=== PATIENT | male | born 1955 | race American Indian/Alaskan Native ===

== ENCOUNTER 2016-12-09 22:08 | Emergency (ER) | payer MEDICAID ==
[2016-12-09 22:46] LABS: Basophils % (Auto) 0.9 % (0.0-1.8); Eosinophils % (Auto) 9.5 % (0.0-4.3); Hematocrit 45.6 % (35.5-45.6); Hemoglobin 14.9 gm/dl (11.8-15.2); Mean Corpuscular HGB Conc 33 % (32-34); Mean Corpuscular Hemoglobin 28 pg (28-32); Mean Corpuscular Volume 85 fl (84-94); Platelet Count 231 K/mm3 (140-440); Red Blood Count 5.36 M/mm3 (3.65-5.03); Red Cell Distribution Width 13.2 % (13.2-15.2); White Blood Count 4.1 K/mm3 (4.5-11.0)
[2016-12-09 23:05] LABS: Anion Gap 18 mmol/L; BUN/Creatinine Ratio 21; Blood Urea Nitrogen 15 mg/dL (9-20); Carbon Dioxide 24 mmol/L (22-30); Chloride 98.3 mmol/L (98-107); Glucose 123 mg/dL (75-100); Potassium 4.8 mmol/L (3.6-5.0); Sodium 135 mmol/L (137-145)
--- NOTE | 2016-12-10 02:20 | Emergency Department Report ---
ED Chest Pain HPI - General Chief Complaint: Chest Pain Stated Complaint: CP,BRYANT Time Seen by Provider: 12/09/16 22:21 Source: patient, EMS Mode of arrival: Stretcher Limitations: No Limitations - History of Present Illness -: Sudden, minutes(s) (30) Onset: during rest Pain Location: substernal, left chest, right chest Pain Radiation: none Severity: moderate Severity scale (0 -10): 5 Quality: tightness, sharp Consistency: intermittent Improves With: nothing Worsens With: inspiration, palpation Context: recent illness re: denies: nausea, vomting, diaphoresis Other Symptoms: cough Treatments Prior to Arrival: nitroglycerin Aspirin use within the Past 7 Days: (0) No - Related Data On Oral Contraceptives: No Home Medications Medication Instructions Recorded Confirmed Last Taken Amlodipine Besylate [Norvasc] 10 mg PO DAILY 12/09/16 12/09/16 Unknown Hydrochlorothiazide [HCTZ] 12.5 mg PO DAILY 12/09/16 12/09/16 Unknown Insulin Glargine [Lantus] 20 units SQ QHS 12/09/16 12/09/16 12/08/16 Lisinopril [Zestril TAB] 30 mg PO QDAY 12/09/16 12/09/16 Unknown Metoclopramide HCl [Reglan TAB] 5 mg PO TIDAC 12/09/16 12/09/16 Unknown Pravastatin (Nf) [Pravachol] 20 mg PO QHS 12/09/16 12/09/16 Unknown Previous Rx's Medication Instructions Recorded Last Taken Type Naproxen 500 mg PO BID #20 tablet 12/10/16 Unknown Rx Allergies Allergy/AdvReac Type Severity Reaction Status Date / Time No Known Allergies Allergy Unverified 11/23/15 01:24 Heart Score - HEART Score History: Slightly suspicious EKG: Normal Age: 45-65 Risk factors: > 3 risk factors or hx of atherosclerotic disease Troponin: < normal limit HEART Score: 3 ED Review of Systems ROS: Stated complaint: CP,BRYANT Other details as noted in HPI Constitutional: denies: chills, fever Eyes: denies: eye pain, eye discharge, vision change ENT: denies: ear pain, throat pain Respiratory: denies: cough, shortness of breath, wheezing Cardiovascular: chest pain. denies: palpitations Endocrine: no symptoms reported Gastrointestinal: denies: abdominal pain, nausea, diarrhea Genitourinary: denies: urgency, dysuria Musculoskeletal: denies: back pain, joint swelling, arthralgia Skin: denies: rash, lesions Neurological: denies: headache, weakness, paresthesias Psychiatric: denies: anxiety, depression Hematological/Lymphatic: denies: easy bleeding, easy bruising ED Past Medical Hx - Past Medical History Previous Medical History?: Yes Hx Hypertension: Yes Hx CVA: No Hx Heart Attack/AMI: Yes (1 stent) Hx Congestive Heart Failure: No Hx Diabetes: Yes Hx Deep Vein Thrombosis: No Hx Pulmonary Embolism: No Additional medical history: high cholestrol - Surgical History Past Surgical History?: Yes Hx Coronary Stent: Yes - Social History Smoking Status: Former Smoker Substance Use Type: None - Medications Home Medications: Home Medications Medication Instructions Recorded Confirmed Last Taken Type Amlodipine Besylate [Norvasc] 10 mg PO DAILY 12/09/16 12/09/16 Unknown History Hydrochlorothiazide [HCTZ] 12.5 mg PO DAILY 12/09/16 12/09/16 Unknown History Insulin Glargine [Lantus] 20 units SQ QHS 12/09/16 12/09/16 12/08/16 History Lisinopril [Zestril TAB] 30 mg PO QDAY 12/09/16 12/09/16 Unknown History Metoclopramide HCl [Reglan TAB] 5 mg PO TIDAC 12/09/16 12/09/16 Unknown History Pravastatin (Nf) [Pravachol] 20 mg PO QHS 12/09/16 12/09/16 Unknown History Naproxen 500 mg PO BID #20 tablet 12/10/16 Unknown Rx ED Physical Exam - General Limitations: No Limitations General appearance: alert, in no apparent distress - Head Head exam: Present: atraumatic, normocephalic - Eye Eye exam: Present: normal appearance - ENT ENT exam: Present: mucous membranes moist - Neck Neck exam: Present: normal inspection - Respiratory Respiratory exam: Present: normal lung sounds bilaterally. Absent: respiratory distress - Cardiovascular Cardiovascular Exam: Present: regular rate, normal rhythm, other (Reproducible chest pain on compression of rib and sternum bilaterally.). Absent: systolic murmur, diastolic murmur, rubs, gallop - GI/Abdominal GI/Abdominal exam: Present: soft, normal bowel sounds - Rectal Rectal exam: Present: deferred - Extremities Exam Extremities exam: Present: normal inspection - Back Exam Back exam: Present: normal inspection - Neurological Exam Neurological exam: Present: alert, oriented X3 - Psychiatric Psychiatric exam: Present: normal affect, normal mood - Skin Skin exam: Present: warm, dry, intact, normal color. Absent: rash ED Course Vital Signs 12/09/16 22:34 Pulse Rate 75 Respiratory 18 Rate O2 Sat by Pulse 98 Oximetry - Reevaluation(s) Reevaluation #1: 12/10/16 02:22 Patient with no chest pain current and did report reoccuring chest pain over the last several days related to movement of arms and deep breathing. - Consultations Consultation #1: 12/10/16 02:22 Send EKG to intermediate project manager around 2220 and he stated there was no ST segment elevation. Dr. Merino. RONN score - Ronn Score Age > 65: (0) No Aspirin use within the Past 7 Days: (0) No 3 or more CAD Risk Factors: (1) Yes 2 or more Angina events in past 24 hrs: (0) No Known CAD with more than 50% Stenosis: (1) Yes Elevated Cardiac Markers: (0) No ST Deviation Greater than 0.5mm: (0) No RONN Score: 2 ED Medical Decision Making - Lab Data Result diagrams: 12/09/16 22:20 12/09/16 22:20 - EKG Data -: EKG Interpreted by [facility] EKG shows normal: sinus rhythm, QRS complexes (Incomplete LBBB), ST-T waves (No ST segment abnormalities per interventional cardiology.) Rate: normal - EKG Data Interpretation: LV[facility] - Radiology Data Radiology results: report reviewed, image reviewed No acute changes. - Medical Decision Making Patient has costochondritis and will be sent home with naproxen. He will follow up with cardiology and he reports good follow up. He would prefer an outpatient workup for chest pain and with his RONN score and heart score this is a reasonable approach. Again this appears to be all costochondritis. Critical care attestation.: If time is entered above; I have spent that time in minutes in the direct care of this critically ill patient, excluding procedure time. ED Disposition Clinical Impression: Costochondral pain Chest pain Qualifiers: Chest pain type: other chest pain Qualified Code(s): R07.89 - Other chest pain ; R07.8 - Other chest pain Disposition: TO HOME OR SELFCARE Is pt being admited?: No Does the pt Need Aspirin: No Condition: Stable Instructions: Costochondritis (ED), Chest Pain (ED) Prescriptions: Naproxen 500 mg PO BID #20 tablet Referrals: PRIMARY CARE, [Primary Care Provider] - 3-5 Days Time of Disposition: 02:29
[2016-12-10 02:50] VITALS: BP 138/93
--- NOTE | 2016-12-10 09:07 | XRay Report ---
AP CHEST: HISTORY: chest pain AP view of the chest demonstrates a normal mediastinal and cardiac contour with clear lungs and normal bony and soft tissue structures. IMPRESSION: Unremarkable AP chest.
== END 2016-12-10 02:50 | disposition home or self-care (01) ==
LOC: ED 22:08
DX: M94.0 Chondrocostal junction syndrome [Tietze] (principal); R07.89 Other chest pain; I10 Essential (primary) hypertension; E11.9 Type 2 diabetes mellitus without complications; E86.0 Dehydration; Z87.891 Personal history of nicotine dependence; Z98.890 Other specified postprocedural states
CPT/HCPCS: 36415; 71010; 80048; 84484; 85025; 93005; 93010; 99284

== ENCOUNTER 2018-03-09 04:00 | Emergency (ER) | payer MEDICAID ==
--- NOTE | 2018-03-09 04:48 | Emergency Department Report ---
- General Chief complaint: Weakness Stated complaint: LEFT SIDE NUMBNESS Time Seen by Provider: 03/09/18 04:38 Source: patient, EMS Mode of arrival: Stretcher Limitations: Physical Limitation - History of Present Illness Initial comments: Patient is a 62-year-old Citizen Of [place] male who is status post a stroke in November 2017 which left him with some mild residual weakness on the left arm and leg who is presenting with some worsening weakness in the aforementioned limbs. Patient states that at baseline he does still have some weakness however tonight approximately 2 hours prior to arrival the patient after drinking 2 glasses of red wine began having numbness and some increased weakness. Patient states he is numb in his arm leg on the left as well as buttock. Patient states it was not until he drank the wine that he started having these symptoms. The patient states that he was told that he could drink wine after he had his stroke. The patient denies any chest pain shortness of breath nausea vomiting headache. Patient does state that he feels as though he is having some slurred speech. Severity scale (0 -10): 5 - Related Data Home Medications Medication Instructions Recorded Confirmed Last Taken Insulin Glargine [Lantus] 20 units SQ QHS 12/09/16 03/09/18 12/08/16 Lisinopril [Zestril TAB] 1 tab PO QDAY 12/09/16 03/09/18 Unknown Aspirin 81 mg PO DAILY 02/07/18 03/09/18 Unknown AtorvaSTATin [Lipitor] 40 mg PO QHS 02/07/18 03/09/18 Unknown Carvedilol [Coreg] 3.125 mg PO BID 02/07/18 03/09/18 Unknown Allergies Allergy/AdvReac Type Severity Reaction Status Date / Time No Known Allergies Allergy Verified 02/07/18 05:46 ED Review of Systems ROS: Stated complaint: LEFT SIDE NUMBNESS Other details as noted in HPI Comment: All other systems reviewed and negative ED Past Medical Hx - Past Medical History Previous Medical History?: Yes Hx Hypertension: Yes Hx CVA: Yes Hx Heart Attack/AMI: Yes (2 stent) Hx Congestive Heart Failure: No Hx Diabetes: Yes (type 2) Hx Deep Vein Thrombosis: No Hx Pulmonary Embolism: No Additional medical history: high cholestrol - Surgical History Past Surgical History?: Yes Hx Coronary Stent: Yes (2 stents) Additional Surgical History: 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 - Social History Smoking Status: Never Smoker Substance Use Type: Alcohol - Medications Home Medications: Home Medications Medication Instructions Recorded Confirmed Last Taken Type Insulin Glargine [Lantus] 20 units SQ QHS 12/09/16 03/09/18 12/08/16 History Lisinopril [Zestril TAB] 1 tab PO QDAY 12/09/16 03/09/18 Unknown History Aspirin 81 mg PO DAILY 02/07/18 03/09/18 Unknown History AtorvaSTATin [Lipitor] 40 mg PO QHS 02/07/18 03/09/18 Unknown History Carvedilol [Coreg] 3.125 mg PO BID 02/07/18 03/09/18 Unknown History ED Physical Exam - General Limitations: Physical Limitation General appearance: alert, in no apparent distress - Head Head exam: Present: atraumatic, normocephalic - Eye Eye exam: Present: normal appearance - ENT ENT exam: Present: mucous membranes moist - Neck Neck exam: Present: normal inspection - Respiratory Respiratory exam: Present: normal lung sounds bilaterally. Absent: respiratory distress, wheezes, rales, rhonchi - Cardiovascular Cardiovascular Exam: Present: regular rate, normal rhythm. Absent: systolic murmur, diastolic murmur, rubs, gallop - GI/Abdominal GI/Abdominal exam: Present: soft, normal bowel sounds. Absent: distended, tenderness, guarding, rebound - Rectal Rectal exam: Present: deferred - Extremities Exam Extremities exam: Present: normal inspection - Back Exam Back exam: Present: normal inspection - Neurological Exam Neurological exam: Present: alert, oriented X3, CN II-XII intact, motor sensory deficit - Psychiatric Psychiatric exam: Present: normal affect, normal mood - Skin Skin exam: Present: warm, dry, intact, normal color. Absent: rash - Assessment Assessment Interval: Baseline - Level of Consciousness 1a. Level of Consciousness: alert/keenly responsive - LOC Questions 1b. LOC Questions: answers both correctly - LOC Command 1c. LOC Commands: performs tasks correctly - Best Gaze 2. Best Gaze: normal - Visual 3. Visual: no visual loss - Facial Palsy 4. Facial Palsy: normal symmetrical movement - Motor Arm 5b. Motor Arm Right: no drift 5a. Motor Arm Left: drift - Motor Leg 6b. Motor Leg Right: no drift 6a. Motor Leg Left: drift - Limb Ataxia 7. Limb Ataxia: absent - Sensory 8. Sensory: mild/moderate sensory loss - Best Language 9. Best Language: no aphasia - Dysarthria 10. Dysarthria: mild/moderate dysarthria - Extinction and Inattention 11. Extinction/Inattention: no abnormality - Scoring Total Score: 4 Stroke Severity: Minor Stroke ED Course Vital Signs 03/09/18 03/09/18 03/09/18 04:31 05:00 05:04 Temperature 98.1 F Pulse Rate 91 H Respiratory 15 15 Rate Blood Pressure 127/74 127/74 Blood Pressure 127/74 [Right] O2 Sat by Pulse 97 98 97 Oximetry 03/09/18 03/09/18 03/09/18 06:01 07:00 07:05 Temperature 97.5 F L Pulse Rate 83 80 80 Respiratory 15 15 15 Rate Blood Pressure 133/72 114/72 Blood Pressure 114/72 [Right] O2 Sat by Pulse 97 96 96 Oximetry 03/09/18 03/09/18 03/09/18 09:00 11:00 13:00 Temperature Pulse Rate 84 94 H 85 Respiratory 17 13 15 Rate Blood Pressure Blood Pressure 131/81 142/80 159/99 [Right] O2 Sat by Pulse 96 97 94 Oximetry 03/09/18 14:33 Temperature 97.5 F L Pulse Rate 89 Respiratory 16 Rate Blood Pressure Blood Pressure 167/98 [Right] O2 Sat by Pulse 97 Oximetry ED Medical Decision Making - Lab Data Result diagrams: 03/09/18 04:52 03/09/18 04:52 Labs 03/09/18 03/09/18 03/09/18 04:51 04:52 04:52 WBC 4.3 L RBC 4.38 Hgb 12.3 Hct 36.7 MCV 84 MCH 28 MCHC 34 RDW 13.1 L Plt Count 271 Lymph % (Auto) 41.0 H [place] % (Auto) 4.1 Eos % (Auto) 6.5 H Baso % (Auto) 1.0 Lymph # 1.8 [place] # 0.2 Eos # 0.3 Baso # 0.0 Seg Neutrophils % 47.4 Seg Neutrophils # 2.1 PT 13.1 INR 0.95 APTT 29.1 Thrombin Time 17.4 Sodium Potassium Chloride Carbon Dioxide Anion Gap BUN Creatinine Estimated GFR BUN/Creatinine Ratio Glucose POC Glucose 131 H Calcium Total Creatine Kinase CK-MB (CK-2) CK-MB (CK-2) Rel Index Troponin T 03/09/18 04:52 WBC RBC Hgb Hct MCV MCH MCHC RDW Plt Count Lymph % (Auto) [place] % (Auto) Eos % (Auto) Baso % (Auto) Lymph # [place] # Eos # Baso # Seg Neutrophils % Seg Neutrophils # PT INR APTT Thrombin Time Sodium 142 Potassium 3.8 Chloride 102.8 Carbon Dioxide 25 Anion Gap 18 BUN 12 Creatinine 0.7 L Estimated GFR > 60 BUN/Creatinine Ratio 17 Glucose 137 H POC Glucose Calcium 9.4 Total Creatine Kinase 564 H CK-MB (CK-2) 11.8 H CK-MB (CK-2) Rel Index 2.0 Troponin T 0.012 - Medical Decision Making Patient likely is intoxicated. Patient's drift was minimal. Patient was signed out to Dr. Fischer. Patient was allowed to reach sobriety and symptoms completely resolved. Patient's hypertensive episode was treated. Patient was discharged in stable condition. Critical care attestation.: If time is entered above; I have spent that time in minutes in the direct care of this critically ill patient, excluding procedure time. ED Disposition Clinical Impression: Alcohol intoxication, Weakness, Hypertensive urgency Disposition: DC-01 TO HOME OR SELFCARE Is pt being admited?: No Does the pt Need Aspirin: No Condition: Stable Instructions: Alcohol Intoxication (ED) Referrals: [facility] [Provider Group] - 3-5 Days PRIMARY CARE, [Primary Care Provider] - 3-5 Days
[2018-03-09 05:07] LABS: Eosinophils # (Auto) 0.3 K/mm3 (0.0-0.4); Eosinophils % (Auto) 6.5 % (0.0-4.3); Hematocrit 36.7 % (35.5-45.6); Hemoglobin 12.3 gm/dl (11.8-15.2); Lymphocytes # (Auto) 1.8 K/mm3 (1.2-5.4); Mean Corpuscular HGB Conc 34 % (32-34); Mean Corpuscular Volume 84 fl (84-94); Monocytes # (Auto) 0.2 K/mm3 (0.0-0.8); Monocytes % (Auto) 4.1 % (0.0-7.3); Platelet Count 271 K/mm3 (140-440); Red Blood Count 4.38 M/mm3 (3.65-5.03); Red Cell Distribution Width 13.1 % (13.2-15.2)
--- NOTE | 2018-03-09 05:10 | Cat Scan Report ---
FINAL REPORT EXAM: CT HEAD/BRAIN WO CON HISTORY: Stroke symptoms TECHNIQUE: CT imaging acquired through the head without intravenous contrast. Transaxial reformatio ns are provided. PRIORS: 02/07/2018 FINDINGS: The ventricles, cisterns and sulci are within normal limits. No intraparenchymal or extra-axial mass, hemorrhage, or mass effect. Duron and white-matter differentiation is within normal limits for patie nt age. Normal spherical shape of the globes. No significant abnormality involving the imaged portions of the paranasal sinuses and mastoid air cells. Incidentally noted small left frontal scalp lipoma measurin g up to about 12 millimeters in greatest transverse dimension on axial series 2, image 22. No skull o r facial fracture visualized. IMPRESSION: No acute intracranial abnormality. SUKHWINDER Uribe received report of findings at 0406 hours central time on 03/09/2018.
[2018-03-09 05:19] LABS: INR 0.95 (0.87-1.13)
[2018-03-09 05:20] LABS: Partial Thromboplastin Time 29.1 Sec. (24.2-36.6); Thrombin Time 17.4 Sec. (15.1-19.6)
[2018-03-09 05:27] LABS: Creatine Kinase MB 11.8 ng/mL (0.0-4.0)
[2018-03-09 05:30] LABS: BUN/Creatinine Ratio 17; Blood Urea Nitrogen 12 mg/dL (9-20); Calcium 9.4 mg/dL (8.4-10.2); Hemolysis Index 11
--- NOTE | 2018-03-09 13:54 | Emergency Department Report ---
Blank Doc - Documentation Documentation: I received patient this morning in signout from Dr. Alvarez, the overnight phys ician. Patient presented reporting left-sided weakness, however has history of baseline left-sided weakness due to previous CVA. Physical exam did not reveal any new deficits. Patient was also found to be intoxicated with alcohol level of 240. Patient has been observed in ED 10 hours. Patient currently awake and alert 3. The patient was given something to eat. Patient ambulated around the ER using his cane, no difficulty noted. Patient has steady gait, speech is not slurred. Will discharge at this time. Return precautions given.
[2018-03-09 14:36] VITALS: BP 167/98
== END 2018-03-09 14:33 | disposition home or self-care (01) ==
LOC: ED 04:00
DX: R53.1 Weakness (principal); R20.0 Anesthesia of skin; R47.81 Slurred speech; I10 Essential (primary) hypertension; I25.2 Old myocardial infarction; E11.9 Type 2 diabetes mellitus without complications; E78.00 Pure hypercholesterolemia, unspecified; Z89.421 Acquired absence of other right toe(s); Z79.4 Long term (current) use of insulin; Z86.73 Personal history of transient ischemic attack (TIA), and cerebral infarction without residual deficits; Z79.82 Long term (current) use of aspirin
CPT/HCPCS: 36415; 70450; 80048; 82550; 82553; 82962; 84484; 85025; 85610; 85670; 85730; 93005; 93010; 99285; G0480; 80320

== ENCOUNTER 2019-02-10 03:58 | Inpatient (IN) | payer MEDICAID ==
[2019-02-10 04:49] LABS: Hematocrit 42.5 % (35.5-45.6); Hemoglobin 14.1 gm/dl (11.8-15.2); Mean Corpuscular HGB Conc 33 % (32-34); Mean Corpuscular Volume 82 fl (84-94); Platelet Count 365 K/mm3 (140-440); Red Blood Count 5.18 M/mm3 (3.65-5.03); Red Cell Distribution Width 12.7 % (13.2-15.2)
[2019-02-10 05:11] LABS: Alanine Aminotransferase 20 units/L (7-56); Albumin 3.8 g/dL (3.9-5); BUN/Creatinine Ratio 29; Blood Urea Nitrogen 23 mg/dL (9-20); Calcium 10.3 mg/dL (8.4-10.2); Hemolysis Index 12
[2019-02-10 05:15] LABS: Eosinophils % (Auto) 0.4 % (0.0-4.3); Monocytes # (Auto) 0.7 K/mm3 (0.0-0.8)
[2019-02-10 05:36] LABS: Basophils % (Auto) 0.2 % (0.0-1.8); Lymphocytes % (Auto) 9.2 % (13.4-35.0)
[2019-02-10 05:37] LABS: Lymphocytes # (Auto) 0.5 K/mm3 (1.2-5.4)
[2019-02-10] MEDS ORDERED: SODIUM CHLORIDE 0.9% 1000 ML 1,000 ML IV ONE (06:47)
[2019-02-10] MEDS ORDERED: FAMOTIDINE 20 MG/2 ML INJ IV ONE (06:49)
--- NOTE | 2019-02-10 06:50 | Emergency Department Report ---
ED General Adult HPI - General Chief complaint: Abdominal Pain Stated complaint: ABD PAIN Time Seen by Provider: 02/10/19 06:07 Source: patient, EMS ( EMS documentation not available at time of chart dictation ), RN notes reviewed, old records reviewed Mode of arrival: Stretcher Limitations: Altered Mental Status, Physical Limitation - History of Present Illness Initial comments: This patient is a poor historian. The patient is a 63-year-old gentleman. This patient is not known to this provider previously. As per review of old medical records, his past medical history includes cardiac stent, diabetes, hypertension, alcohol dependency, dyslipidemia, ischemic stroke The patient is not accompanied by any friends or family members. He is report edly brought to the hospital by emergency medical services for abdominal pain. The patient is a rather poor historian. He points to the left lower quadrant and indicates she's been having abdominal pain for 2 weeks. He does not complain of nausea, vomiting or diarrhea. He cannot describe the nature of the pain. He indicates the pain increases with palpation and decreases with rest. He states that he lives "across the street", but cannot provide me his address, he believes that it is 2018, and he indicates that Khoi Nelson is the current president of [facility]. He does not complain of headache, neck pain, chest pain, urinary symptoms, or testicular pain. He is not accompanied by any friends or family at this time, additional collateral information is not available. -: week(s) Location: abdomen Quality: other Consistency: other Improves with: other Worsens with: other Associated Symptoms: other - Related Data Home Medications Medication Instructions Recorded Confirmed Last Taken Insulin Glargine [Lantus] 20 units SQ QHS 12/09/16 03/09/18 12/08/16 Lisinopril [Zestril TAB] 1 tab PO QDAY 12/09/16 03/09/18 Unknown Aspirin 81 mg PO DAILY 02/07/18 03/09/18 Unknown AtorvaSTATin [Lipitor] 40 mg PO QHS 02/07/18 03/09/18 Unknown Carvedilol [Coreg] 3.125 mg PO BID 02/07/18 03/09/18 Unknown Allergies Allergy/AdvReac Type Severity Reaction Status Date / Time No Known Allergies Allergy Verified 02/07/18 05:46 ED Review of Systems ROS: Stated complaint: ABD PAIN Other details as noted in HPI Comment: Unobtainable due to pts medical conditions Gastrointestinal: abdominal pain ED Past Medical Hx - Past Medical History Hx Hypertension: Yes Hx CVA: Yes Hx Heart Attack/AMI: Yes (2 stent) Hx Congestive Heart Failure: No Hx Diabetes: Yes (type 2) Hx Deep Vein Thrombosis: No Hx Pulmonary Embolism: No Additional medical history: high cholestrol - Surgical History Hx Coronary Stent: Yes (2 stents) Additional Surgical History: 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 - Social History Smoking Status: Never Smoker Substance Use Type: None - Medications Home Medications: Home Medications Medication Instructions Recorded Confirmed Last Taken Type Insulin Glargine [Lantus] 20 units SQ QHS 12/09/16 03/09/18 12/08/16 History Lisinopril [Zestril TAB] 1 tab PO QDAY 12/09/16 03/09/18 Unknown History Aspirin 81 mg PO DAILY 02/07/18 03/09/18 Unknown History AtorvaSTATin [Lipitor] 40 mg PO QHS 02/07/18 03/09/18 Unknown History Carvedilol [Coreg] 3.125 mg PO BID 02/07/18 03/09/18 Unknown History ED Physical Exam - General Limitations: Altered Mental Status, Physical Limitation, Other (patient confused. Patient is a poor historian.) General appearance: in no apparent distress - Head Head exam: Present: atraumatic, normocephalic - Eye Eye exam: Present: normal appearance, EOMI. Absent: nystagmus - ENT ENT exam: Present: mucous membranes dry, normal external ear exam - Neck Neck exam: Present: normal inspection, full ROM. Absent: tenderness, meningismu s - Respiratory Respiratory exam: Present: normal lung sounds bilaterally. Absent: respiratory distress - Cardiovascular Cardiovascular Exam: Present: regular rate, normal rhythm, normal heart sounds. Absent: bradycardia, tachycardia, irregular rhythm, systolic murmur, diastolic murmur, rubs, gallop - GI/Abdominal GI/Abdominal exam: Present: soft, tenderness, other (there is tenderness in the left lower quadrant. There is no rebound, guarding or peritoneal sign.). Absent: distended, guarding, rebound, rigid, pulsatile mass - Rectal Rectal exam: Present: deferred - exam: Present: normal inspection, other (there is normal testicular lie. There is normal cremasteric reflex. There is no testicular tenderness. There is no testicular swelling). Absent: testicular tenderness External exam: Present: normal external exam - Extremities Exam Extremities exam: Present: normal inspection, full ROM, other (2+ pulses noted in the bilateral upper and lower extremities. There is no palpable cord. negative Homans sign. Muscular compartments are soft. The pelvis is stable.). Absent: tenderness, pedal edema, joint swelling, calf tenderness - Back Exam Back exam: Present: normal inspection. Absent: tenderness, CVA tenderness (R), CVA tenderness (L), paraspinal tenderness, vertebral tenderness - Neurological Exam Neurological exam: Present: altered, other (the patient is alert to name and location. Does not know the year or the president. Moving 4 extremities spontaneously. 5/5 strength bilateral upper and lower extremities. Sensation is intact to light touch in the upper and lower extremities.) - Psychiatric Psychiatric exam: Present: flat affect - Skin Skin exam: Present: warm, dry, intact, normal color. Absent: rash ED Course Vital Signs 02/10/19 02/10/19 02/10/19 04:09 04:10 04:16 Temperature 98.3 F Pulse Rate 91 H 91 H Respiratory 20 12 Rate Blood Pressure 183/106 183/106 O2 Sat by Pulse 99 98 97 Oximetry 02/10/19 02/10/19 02/10/19 04:30 04:46 05:00 Temperature Pulse Rate 89 92 H 96 H Respiratory 15 17 14 Rate Blood Pressure 157/93 157/93 181/105 O2 Sat by Pulse 98 100 98 Oximetry 02/10/19 02/10/19 02/10/19 05:16 05:30 05:46 Temperature Pulse Rate 97 H 97 H 97 H Respiratory 19 12 14 Rate Blood Pressure 157/93 170/105 170/105 O2 Sat by Pulse 71 L Oximetry 02/10/19 02/10/19 02/10/19 06:00 06:16 06:30 Temperature Pulse Rate 95 H 97 H 105 H Respiratory 16 18 24 Rate Blood Pressure 157/90 157/90 164/104 O2 Sat by Pulse Oximetry 02/10/19 02/10/19 02/10/19 06:46 07:00 07:16 Temperature Pulse Rate 101 H 99 H 101 H Respiratory 20 17 19 Rate Blood Pressure 164/104 173/98 173/98 O2 Sat by Pulse 100 Oximetry 02/10/19 02/10/19 02/10/19 07:30 07:46 08:00 Temperature Pulse Rate 113 H 102 H 95 H Respiratory 18 20 19 Rate Blood Pressure 173/98 166/94 166/94 O2 Sat by Pulse Oximetry 02/10/19 08:16 Temperature Pulse Rate 103 H Respiratory 12 Rate Blood Pressure 184/107 O2 Sat by Pulse Oximetry - Reevaluation(s) Reevaluation #1: 02/10/19 08:09 Differential diagnosis, including but not limited to: Pneumonia, intra-abdominal infection, urinary tract infection, dementia, alcohol related encephalopathy, metabolic encephalopathy, multifocal/multifactorial encephalopathy Assessment and plan: 63-year-old gentleman without fever, no neck pain, no neck stiffness, multiple medical comorbidities, with mild confusion and poorly characterized left lower quadrant pain. Laboratory studies reviewed and appreciated. Urinalysis reviewed and appreciated. IV fluids, banana bag, ceftriaxone ordered. CT scan of the brain ordered. CT scan of the abdomen pelvis ordered. Patient not able to provide consent for CT scan abdomen pelvis, and given tenderness and confusion, requires emergent acquisition of diagnostics to exclude time sensitive conditions that may be emergent. Therefore, we have provided emergent and administrative consent for CT scan with IV contrast to assess for potentially emergent conditions, including abscess, colitis, perforated viscus, thrombus. We will await remainder of his laboratory studies, and CT scan results. Disposition to be determined by these results. X We will also involved case management to help ascertain what his home status is, and what his home baseline is. Reevaluation #2: 02/10/19 11:54 CT scan of the brain is negative for acute disease. CT scan abdomen pelvis s uggests small bowel obstruction. No active vomiting at this time. Remainder of laboratory studies reviewed and appreciated. Nasogastric tube is ordered. Discussed with general surgery, Dr. Fisher, who agrees to follow in consultation. Contacted Hospital physician, Dr. Ponce, who will admit patient to the medical service. Patient's fianc at the bedside, Ms. Emily Adame; [phone] The patient follows at [facility]. He's been having confusion and poor memory since October 19. She indicates that his mental status today is at his recent baseline. Updated the patient and his fiance on his condition. ED Medical Decision Making - Lab Data Result diagrams: 02/10/19 04:22 02/10/19 04:22 Vital Signs 02/10/19 04:10 Temperature 98.3 F Pulse Rate 91 H Respiratory 20 Rate Blood Pressure 183/106 O2 Sat by Pulse 98 Oximetry Lab Results 02/10/19 02/10/19 02/10/19 Range/Units 04:22 04:22 04:49 WBC 5.2 (4.5-11.0) K/mm3 RBC 5.18 H (3.65-5.03) M/mm3 Hgb 14.1 (11.8-15.2) gm/dl Hct 42.5 (35.5-45.6) % MCV 82 L (84-94) fl MCH 27 L (28-32) pg MCHC 33 (32-34) % RDW 12.7 L (13.2-15.2) % Plt Count 365 (140-440) K/mm3 Lymph % (Auto) 9.2 L (13.4-35.0) % [place] % (Auto) 14.0 H (0.0-7.3) % Eos % (Auto) 0.4 (0.0-4.3) % Baso % (Auto) 0.2 (0.0-1.8) % Lymph # 0.5 L (1.2-5.4) K/mm3 [place] # 0.7 (0.0-0.8) K/mm3 Eos # 0.0 (0.0-0.4) K/mm3 Baso # 0.0 (0.0-0.1) K/mm3 Seg Neutrophils % 76.2 H (40.0-70.0) % Seg Neutrophils # 3.9 (1.8-7.7) K/mm3 Sodium 130 L (137-145) mmol/L Potassium 4.7 (3.6-5.0) mmol/L Chloride 94.6 L (98-107) mmol/L Carbon Dioxide 24 (22-30) mmol/L Anion Gap 16 mmol/L BUN 23 H (9-20) mg/dL Creatinine 0.8 (0.8-1.5) mg/dL Estimated GFR > 60 ml/min BUN/Creatinine Ratio 29 % Glucose 283 H (75-100) mg/dL Calcium 10.3 H (8.4-10.2) mg/dL Magnesium (1.7-2.3) mg/dL Total Bilirubin 0.60 (0.1-1.2) mg/dL AST 16 (5-40) units/L ALT 20 (7-56) units/L Alkaline Phosphatase 79 (35-129) units/L Ammonia (25-60) umol/L Total Creatine Kinase (55-170) units/L Total Protein 7.3 (6.3-8.2) g/dL Albumin 3.8 L (3.9-5) g/dL Albumin/Globulin Ratio 1.1 % Lipase 18 (13-60) units/L TSH (0.270-4.200) mlU/mL Urine Color (Yellow) Urine Turbidity (Clear) Urine pH (5.0-7.0) Ur Specific [place] (1.003-1.030) Urine Protein (Negative) mg/dL Urine Glucose (UA) (Negative) mg/dL Urine Ketones (Negative) mg/dL Urine Blood (Negative) Urine Nitrite (Negative) Urine Bilirubin (Negative) Urine Urobilinogen (<2.0) mg/dL Ur Leukocyte Esterase (Negative) Urine WBC (Auto) (0.0-6.0) /HPF Urine RBC (Auto) (0.0-6.0) /HPF U Epithel Cells (Auto) (0-13.0) /HPF Urine Bacteria (Auto) (Negative) /HPF Urine Mucus /HPF Salicylates (2.8-20.0) mg/dL Urine Opiates Screen Urine Methadone Screen Acetaminophen (10.0-30.0) ug/mL Ur Barbiturates Screen Ur Phencyclidine Scrn Ur Amphetamines Screen U Benzodiazepines Scrn Urine Cocaine Screen U Marijuana (THC) Screen Drugs of Abuse Note Plasma/Serum Alcohol (0-0.07) % 02/10/19 02/10/19 02/10/19 Range/Units 06:56 06:56 06:59 WBC (4.5-11.0) K/mm3 RBC (3.65-5.03) M/mm3 Hgb (11.8-15.2) gm/dl Hct (35.5-45.6) % MCV (84-94) fl MCH (28-32) pg MCHC (32-34) % RDW (13.2-15.2) % Plt Count (140-440) K/mm3 Lymph % (Auto) (13.4-35.0) % [place] % (Auto) (0.0-7.3) % Eos % (Auto) (0.0-4.3) % Baso % (Auto) (0.0-1.8) % Lymph # (1.2-5.4) K/mm3 [place] # (0.0-0.8) K/mm3 Eos # (0.0-0.4) K/mm3 Baso # (0.0-0.1) K/mm3 Seg Neutrophils % (40.0-70.0) % Seg Neutrophils # (1.8-7.7) K/mm3 Sodium (137-145) mmol/L Potassium (3.6-5.0) mmol/L Chloride (98-107) mmol/L Carbon Dioxide (22-30) mmol/L Anion Gap mmol/L BUN (9-20) mg/dL Creatinine (0.8-1.5) mg/dL Estimated GFR ml/min BUN/Creatinine Ratio % Glucose (75-100) mg/dL Calcium (8.4-10.2) mg/dL Magnesium 1.60 L (1.7-2.3) mg/dL Total Bilirubin (0.1-1.2) mg/dL AST (5-40) units/L ALT (7-56) units/L Alkaline Phosphatase (35-129) units/L Ammonia (25-60) umol/L Total Creatine Kinase 102 (55-170) units/L Total Protein (6.3-8.2) g/dL Albumin (3.9-5) g/dL Albumin/Globulin Ratio % Lipase (13-60) units/L TSH (0.270-4.200) mlU/mL Urine Color Yellow (Yellow) Urine Turbidity Slightly-cloudy (Clear) Urine pH 5.0 (5.0-7.0) Ur Specific [place] 1.032 H (1.003-1.030) Urine Protein 30 mg/dl (Negative) mg/dL Urine Glucose (UA) >=500 (Negative) mg/dL Urine Ketones Tr (Negative) mg/dL Urine Blood Neg (Negative) Urine Nitrite Neg (Negative) Urine Bilirubin Neg (Negative) Urine Urobilinogen < 2.0 (<2.0) mg/dL Ur Leukocyte Esterase Tr (Negative) Urine WBC (Auto) 10.0 H (0.0-6.0) /HPF Urine RBC (Auto) 3.0 (0.0-6.0) /HPF U Epithel Cells (Auto) 4.0 (0-13.0) /HPF Urine Bacteria (Auto) 1+ (Negative) /HPF Urine Mucus Few /HPF Salicylates (2.8-20.0) mg/dL Urine Opiates Screen Presumptive negative Urine Methadone Screen Presumptive negative Acetaminophen (10.0-30.0) ug/mL Ur Barbiturates Screen Presumptive negative Ur Phencyclidine Scrn Presumptive negative Ur Amphetamines Screen Presumptive negative U Benzodiazepines Scrn Presumptive negative Urine Cocaine Screen Presumptive negative U Marijuana (THC) Screen Presumptive positive Drugs of Abuse Note Disclamer Plasma/Serum Alcohol (0-0.07) % 02/10/19 02/10/19 02/10/19 Range/Units 06:59 06:59 06:59 WBC (4.5-11.0) K/mm3 RBC (3.65-5.03) M/mm3 Hgb (11.8-15.2) gm/dl Hct (35.5-45.6) % MCV (84-94) fl MCH (28-32) pg MCHC (32-34) % RDW (13.2-15.2) % Plt Count (140-440) K/mm3 Lymph % (Auto) (13.4-35.0) % [place] % (Auto) (0.0-7.3) % Eos % (Auto) (0.0-4.3) % Baso % (Auto) (0.0-1.8) % Lymph # (1.2-5.4) K/mm3 [place] # (0.0-0.8) K/mm3 Eos # (0.0-0.4) K/mm3 Baso # (0.0-0.1) K/mm3 Seg Neutrophils % (40.0-70.0) % Seg Neutrophils # (1.8-7.7) K/mm3 Sodium (137-145) mmol/L Potassium (3.6-5.0) mmol/L Chloride (98-107) mmol/L Carbon Dioxide (22-30) mmol/L Anion Gap mmol/L BUN (9-20) mg/dL Creatinine (0.8-1.5) mg/dL Estimated GFR ml/min BUN/Creatinine Ratio % Glucose (75-100) mg/dL Calcium (8.4-10.2) mg/dL Magnesium (1.7-2.3) mg/dL Total Bilirubin (0.1-1.2) mg/dL AST (5-40) units/L ALT (7-56) units/L Alkaline Phosphatase (35-129) units/L Ammonia (25-60) umol/L Total Creatine Kinase (55-170) units/L Total Protein (6.3-8.2) g/dL Albumin (3.9-5) g/dL Albumin/Globulin Ratio % Lipase (13-60) units/L TSH (0.270-4.200) mlU/mL Urine Color (Yellow) Urine Turbidity (Clear) Urine pH (5.0-7.0) Ur Specific [place] (1.003-1.030) Urine Protein (Negative) mg/dL Urine Glucose (UA) (Negative) mg/dL Urine Ketones (Negative) mg/dL Urine Blood (Negative) Urine Nitrite (Negative) Urine Bilirubin (Negative) Urine Urobilinogen (<2.0) mg/dL Ur Leukocyte Esterase (Negative) Urine WBC (Auto) (0.0-6.0) /HPF Urine RBC (Auto) (0.0-6.0) /HPF U Epithel Cells (Auto) (0-13.0) /HPF Urine Bacteria (Auto) (Negative) /HPF Urine Mucus /HPF Salicylates < 0.3 L (2.8-20.0) mg/dL Urine Opiates Screen Urine Methadone Screen Acetaminophen < 5.0 L (10.0-30.0) ug/mL Ur Barbiturates Screen Ur Phencyclidine Scrn Ur Amphetamines Screen U Benzodiazepines Scrn Urine Cocaine Screen U Marijuana (THC) Screen Drugs of Abuse Note Plasma/Serum Alcohol < 0.01 (0-0.07) % 02/10/19 02/10/19 Range/Units 06:59 06:59 WBC (4.5-11.0) K/mm3 RBC (3.65-5.03) M/mm3 Hgb (11.8-15.2) gm/dl Hct (35.5-45.6) % MCV (84-94) fl MCH (28-32) pg MCHC (32-34) % RDW (13.2-15.2) % Plt Count (140-440) K/mm3 Lymph % (Auto) (13.4-35.0) % [place] % (Auto) (0.0-7.3) % Eos % (Auto) (0.0-4.3) % Baso % (Auto) (0.0-1.8) % Lymph # (1.2-5.4) K/mm3 [place] # (0.0-0.8) K/mm3 Eos # (0.0-0.4) K/mm3 Baso # (0.0-0.1) K/mm3 Seg Neutrophils % (40.0-70.0) % Seg Neutrophils # (1.8-7.7) K/mm3 Sodium (137-145) mmol/L Potassium (3.6-5.0) mmol/L Chloride (98-107) mmol/L Carbon Dioxide (22-30) mmol/L Anion Gap mmol/L BUN (9-20) mg/dL Creatinine (0.8-1.5) mg/dL Estimated GFR ml/min BUN/Creatinine Ratio % Glucose (75-100) mg/dL Calcium (8.4-10.2) mg/dL Magnesium (1.7-2.3) mg/dL Total Bilirubin (0.1-1.2) mg/dL AST (5-40) units/L ALT (7-56) units/L Alkaline Phosphatase (35-129) units/L Ammonia 36.0 (25-60) umol/L Total Creatine Kinase (55-170) units/L Total Protein (6.3-8.2) g/dL Albumin (3.9-5) g/dL Albumin/Globulin Ratio % Lipase (13-60) units/L TSH 0.626 (0.270-4.200) mlU/mL Urine Color (Yellow) Urine Turbidity (Clear) Urine pH (5.0-7.0) Ur Specific [place] (1.003-1.030) Urine Protein (Negative) mg/dL Urine Glucose (UA) (Negative) mg/dL Urine Ketones (Negative) mg/dL Urine Blood (Negative) Urine Nitrite (Negative) Urine Bilirubin (Negative) Urine Urobilinogen (<2.0) mg/dL Ur Leukocyte Esterase (Negative) Urine WBC (Auto) (0.0-6.0) /HPF Urine RBC (Auto) (0.0-6.0) /HPF U Epithel Cells (Auto) (0-13.0) /HPF Urine Bacteria (Auto) (Negative) /HPF Urine Mucus /HPF Salicylates (2.8-20.0) mg/dL Urine Opiates Screen Urine Methadone Screen Acetaminophen (10.0-30.0) ug/mL Ur Barbiturates Screen Ur Phencyclidine Scrn Ur Amphetamines Screen U Benzodiazepines Scrn Urine Cocaine Screen U Marijuana (THC) Screen Drugs of Abuse Note Plasma/Serum Alcohol (0-0.07) % - EKG Data -: EKG Interpreted by Me EKG shows normal: sinus rhythm Rate: normal - EKG Data 02/10/19 08:11 The EKG today shows a sinus tachycardia, 100 bpm, there is a normal axis, the QTC is 471 ms, there is a left bundle branch block morphology, there is no endorsement of chest pain, the EKG is abnormal, it is not consistent with STEMI, it is unchanged from prior EKG from March 2018. - Radiology Data Radiology results: pending, report reviewed, image reviewed X-ray the chest is negative for acute disease. CT scan of the brain: CT scan of the abdomen pelvis: Critical care attestation.: If time is entered above; I have spent that time in minutes in the direct care of this critically ill patient, excluding procedure time. ED Disposition Clinical Impression: SBO (small bowel obstruction), UTI (urinary tract infection), Encephalopathy Disposition: DC-09 OP ADMIT IP TO THIS HOSP Is pt being admited?: Yes Condition: Serious
[2019-02-10 07:19] LABS: Amphetamine Screen,Urine PRESUMPTIVE NEGATIVE; Benzodiazepines Screen,Urine PRESUMPTIVE NEGATIVE; Cocaine Screen,Urine PRESUMPTIVE NEGATIVE; Methadone Screen,Urine PRESUMPTIVE NEGATIVE; Opiate Screen,Urine PRESUMPTIVE NEGATIVE
[2019-02-10 07:33] LABS: Cannabinoid Screen,Urine PRESUMPTIVE POSITIVE
[2019-02-10 07:35] LABS: Bacteria,Urine 1+ /HPF (Negative); Bilirubin,Urine NEG (Negative); Blood,Urine NEG (Negative); Color,Urine Yellow (Yellow); Mucus,Urine FEW /HPF; Urobilinogen,Urine < 2.0 mg/dL (<2.0)
[2019-02-10] MEDS ORDERED: MAGNESIUM SULFATE 2 GM/50 ML BAG IV ONE (08:03)
--- NOTE | 2019-02-10 08:28 | XRay Report ---
CHEST 1 VIEW INDICATION: confusion, abd pain. COMPARISON: 02/07/2019 FINDINGS: Support devices: None. Heart: Within normal limits. Lungs/Pleura: No acute air space or interstitial disease. Additional findings: None. IMPRESSION: No acute findings. Signer Name: Librado Cheema Jr, MD Signed: 02/10/2019 8:24 AM Workstation Name: [id number]
[2019-02-10] MEDS ORDERED: cefTRIAXone/NS 1 GM/50 ML 1 GM/50 ML BAG IV ONE (08:30)
[2019-02-10] MEDS ORDERED: THIAMINE 100 MG, FOLIC ACID 1 MG, MULTIPLE VITAMIN INJ, ADULT 10 ML in SODIUM CHLORIDE ... IV ONE ×2 (08:30→20:00)
--- NOTE | 2019-02-10 09:12 | Cat Scan Report ---
CT abdomen pelvis w con INDICATION: llq abd pain. TECHNIQUE: All CT scans at this location are performed using the following dose modulation technique: Automated exposure control. Helical slices were obtained through the abdomen and pelvis. 100 cc of Omnipaque 30 0 is administered. COMPARISON: None available. FINDINGS: Abdomen: No acute abnormality is seen in the chest. The heart is mildly enlarged. There is a small amount of ascites in the upper abdomen adjacent spleen. No focal hepatic or splenic lesions are seen. Small hiatal hernia. There is a cyst in the lower pole of the left kidney. There is a small cyst in the mid right kidney. There is no adenopathy. The adrenal glands are unremarkable. There are dilated fluid-filled loops of small bowel. There is transition point in the right mid abdom en from dilated bowel to nondilated small bowel, image 98 series 2. Atherosclerotic calcifications are noted in the aorta and iliac arteries. Pelvis: There are dilated small bowel loops noted. There is no free air. There is no abscess. On review of bone windows, no acute osseous abnormalities are seen. IMPRESSION: 1. There is a relatively high-grade mechanical small bowel obstruction. Point of obstruction is in th e right midabdomen. There is a small amount of ascites in the upper abdomen adjacent to the liver and spleen. Signer Name: Tito Pimentel MD Signed: 02/10/2019 9:07 AM Workstation Name: [id number]
--- NOTE | 2019-02-10 09:16 | Cat Scan Report ---
CT head/brain wo con INDICATION / CLINICAL INFORMATION: 63 years Male; confusion. TECHNIQUE: Routine CT head without contrast. All CT scans at this location are performed using CT dos e reduction for ALARA by means of automated exposure control. COMPARISON: This study is compared to the previous CT of 10/03/2018. FINDINGS: BRAIN / INTRACRANIAL CONTENTS: There is continued extensive cerebral white matter disease most consis tent with microvascular angiopathy. Furthermore, there are old infarcts involving right alicia radiat a and left basal ganglia. The above findings correlate with the previous CT. There is no clear CT lindsey dence of acute intracranial hemorrhage or significant mass effect. There is mild cerebral atrophy. Th e ventricular system remains appropriate in size and configuration. ORBITS: No significant abnormality of visualized orbits. SINUSES / MASTOIDS: No significant abnormality the visualized paranasal sinuses or mastoid air cells. CRANIOCERVICAL JUNCTION: No significant abnormality. ADDITIONAL FINDINGS: None. IMPRESSION: 1. There is continued extensive microvascular angiopathy as described without CT evidence of acute in tracranial hemorrhage. Signer Name: Alexis Nieves MD Signed: 02/10/2019 9:12 AM Workstation Name: [id number]
[2019-02-10] MEDS ORDERED: LIDOCAINE (4%) 40 MG/ML TOPICAL SOLN 50 ML BOTTLE TP ONE (11:00)
[2019-02-10] MEDS ORDERED: LIDOCAINE VISCOUS 2% 15 ML ORAL LIQD PO ONE (11:01)
[2019-02-10] MEDS: fentaNYL 100 MCG/2 ML INJ IV ONE ×2 (11:18→13:00)
--- NOTE | 2019-02-10 12:20 | History and Physical Report ---
History of Present Illness Date of admission: 02/10/19 11:57 Chief complaint: His stomach hurts History of present illness: 63 YO Male with HTN, Nicotine Dependence, ETOH Dependence, DM, CAD S/P Stent Placement, HLD, CVA with LHP presents to ED for evaluation. Pt is confused, and lethargic and unable to provide detailed history. Pt merely points to his abdomen and states that" Its been Hurting". No further history obtainable. Additional history taken from EMS staff, and ED staff. As per staff, the patient has experienced abdominal pain over the past 2 weeks with persistent symptoms over the same time frame. EMS notified, and upon arrival the patient was found to be in distress and transported to [facility]. Pt seen and evaluated in ED and found to have SBO, Encephalopathy, as well as UTI. Pt admitted to medical floor for treatment of UTI as well as High grade SBO. Surgical team consulted in ED. Past History Past Medical History: other (see HPI) Past Surgical History: Other (Cardiac stent, Right toe amputation) Social history: single, smoking, alcohol abuse Family history: diabetes, hypertension Medications and Allergies Allergies Allergy/AdvReac Type Severity Reaction Status Date / Time No Known Allergies Allergy Verified 02/07/18 05:46 Home Medications Medication Instructions Recorded Confirmed Last Taken Type Insulin Glargine [Lantus] 20 units SQ QHS 12/09/16 03/09/18 12/08/16 History Lisinopril [Zestril TAB] 1 tab PO QDAY 12/09/16 03/09/18 Unknown History Aspirin 81 mg PO DAILY 02/07/18 03/09/18 Unknown History AtorvaSTATin [Lipitor] 40 mg PO QHS 02/07/18 03/09/18 Unknown History Carvedilol [Coreg] 3.125 mg PO BID 02/07/18 03/09/18 Unknown History Active Meds: Active Medications Thiamine HCl 100 mg/ Folic Acid 1 mg/ Multivitamins/Minerals 10 ml/ Sodium Chloride 1,011.2 mls @ 250 mls/hr IV ONCE ONE Stop: 02/10/19 12:32 Last Admin: 02/10/19 11:18 Dose: 250 mls/hr Documented by: Review of Systems ROS unobtainable: due to mental status Exam - Constitutional Vitals: Temp Pulse Resp BP Pulse Ox 98.3 F 108 H 24 167/99 96 12/12/19 04:10 02/10/19 11:46 02/10/19 12:00 02/10/19 12:00 02/10/19 12:00 General appearance: Present: mild distress - EENT Eyes: Present: PERRL ENT: hearing intact, clear oral mucosa - Neck Neck: Present: supple, normal ROM - Respiratory Respiratory effort: normal Respiratory: bilateral: CTA - Cardiovascular Heart Sounds: Present: S1 & S2. Absent: rub, click - Extremities Extremities: pulses symmetrical, No edema Peripheral Pulses: within normal limits - Abdominal General gastrointestinal: Present: soft, non-tender, tender, non-distended, normal bowel sounds. Absent: absent bowel sounds, hepatomegaly, splenomegaly Male genitourinary: Present: normal - Integumentary Integumentary: Present: clear, warm, dry - Musculoskeletal Musculoskeletal: gait normal, strength equal bilaterally - Psychiatric Psychiatric: appropriate mood/affect, intact judgment & insight - Neurologic Neurologic: CNII-XII intact, moves all extremities Results - Labs CBC & Chem 7: 02/10/19 04:22 02/10/19 04:22 Labs: Abnormal lab results 02/10/19 02/10/19 02/10/19 Range/Units 04:22 04:22 06:56 RBC 5.18 H (3.65-5.03) M/mm3 MCV 82 L (84-94) fl MCH 27 L (28-32) pg RDW 12.7 L (13.2-15.2) % Lymph % (Auto) 9.2 L (13.4-35.0) % [place] % (Auto) 14.0 H (0.0-7.3) % Lymph # 0.5 L (1.2-5.4) K/mm3 Seg Neutrophils % 76.2 H (40.0-70.0) % Sodium 130 L (137-145) mmol/L Chloride 94.6 L (98-107) mmol/L BUN 23 H (9-20) mg/dL Glucose 283 H (75-100) mg/dL Calcium 10.3 H (8.4-10.2) mg/dL Magnesium (1.7-2.3) mg/dL Albumin 3.8 L (3.9-5) g/dL Ur Specific [place] 1.032 H (1.003-1.030) Urine WBC (Auto) 10.0 H (0.0-6.0) /HPF Salicylates (2.8-20.0) mg/dL Acetaminophen (10.0-30.0) ug/mL 02/10/19 02/10/19 02/10/19 Range/Units 06:59 06:59 06:59 RBC (3.65-5.03) M/mm3 MCV (84-94) fl MCH (28-32) pg RDW (13.2-15.2) % Lymph % (Auto) (13.4-35.0) % [place] % (Auto) (0.0-7.3) % Lymph # (1.2-5.4) K/mm3 Seg Neutrophils % (40.0-70.0) % Sodium (137-145) mmol/L Chloride (98-107) mmol/L BUN (9-20) mg/dL Glucose (75-100) mg/dL Calcium (8.4-10.2) mg/dL Magnesium 1.60 L (1.7-2.3) mg/dL Albumin (3.9-5) g/dL Ur Specific [place] (1.003-1.030) Urine WBC (Auto) (0.0-6.0) /HPF Salicylates < 0.3 L (2.8-20.0) mg/dL Acetaminophen < 5.0 L (10.0-30.0) ug/mL Assessment and Plan - Patient Problems (1) SBO (small bowel obstruction) Current Visit: Yes Status: Acute Plan to address problem: Surgery consulted, bowel rest, IVF resuscitation therapy, CBC, CMP, serial abdominal exam. (2) Encephalopathy Current Visit: Yes Status: Acute Plan to address problem: CT head, neuro check, aspiration precautions, fall precautions, thyroid panel (3) Alcohol dependence Current Visit: Yes Status: Acute Qualifiers: Complication of substance-induced condition: with perceptual disturbance Plan to address problem: CIWA protocol, Blood Alcohol Level, Ativan prn (4) UTI (urinary tract infection) Current Visit: Yes Status: Acute Qualifiers: Encounter type: initial encounter Plan to address problem: IV antibiotic therapy, urinalysis, CBC, (5) Nicotine dependence Current Visit: Yes Status: Acute Qualifiers: Substance use status: in withdrawal Plan to address problem: Supportive care, smoking cessation counseling, +15min (6) DVT prophylaxis Current Visit: Yes Status: Acute Plan to address problem: SCD to BLE while in bed
[2019-02-10] MEDS ORDERED: ONDANSETRON 4 MG/2 ML INJ IV PRN (12:23)
[2019-02-10] MEDS ORDERED: ACETAMINOPHEN 325 MG TAB PO PRN (12:23)
[2019-02-10] MEDS ORDERED: ALBUTEROL 2.5 MG/3 ML NEBU IH PRN (12:23)
[2019-02-10] MEDS ORDERED: DEXTROSE 50% IN WATER (25GM) 50 ML SYRINGE IV PRN (12:25)
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
--- NOTE | 2019-02-10 14:44 | XRay Report ---
ABDOMEN 1 VIEW(S) INDICATION / CLINICAL INFORMATION: confirm NG tube placement. COMPARISON: None available. FINDINGS: TUBES / LINES: NG tube in satisfactory position. BOWEL GAS PATTERN: Prominent bowel distention typical of small bowel obstruction. ADDITIONAL FINDINGS: No significant additional findings. Signer Name: Chele Mayorga MD Signed: 02/10/2019 2:39 PM Workstation Name: [id number]
--- NOTE | 2019-02-10 14:44 | XRay Report ---
CHEST 1 VIEW INDICATION: confirm NGT position. COMPARISON: Earlier the same day. FINDINGS: Support devices: NG tube in satisfactory position. Heart: Within normal limits. Lungs/Pleura: No acute air space or interstitial disease. Additional findings: Negative small bowel obstruction noted. IMPRESSION: Satisfactory NG tube placement. Signer Name: Chele Mayorga MD Signed: 02/10/2019 2:40 PM Workstation Name: [id number]
[2019-02-10] MEDS ORDERED: LORazepam 2 MG/ML VIAL IV PRN (14:52)
[2019-02-10] MEDS: carvediloL 3.125 MG TAB PO SCH (15:59)
[2019-02-10] MEDS: ASPIRIN 81 MG TAB CHEW PO SCH (15:59)
[2019-02-10] MEDS: LISINOPRIL 10 MG TAB PO SCH (16:00)
[2019-02-10] MEDS: SODIUM CHLORIDE 0.9% 1000 ML 1,000 ML IV SCH (16:02)
[2019-02-10] MEDS: hydrALAZINE 20 MG/1 ML INJ IV PRN (17:04)
[2019-02-10] MEDS: INSULIN LISPRO 100 UNIT/ML SUB-Q SCH ×3 (18:42→22:49)
[2019-02-10 20:40] LABS: Free T4 (Free Thyroxine) 1.01 ng/dL (0.76-1.46)
[2019-02-11] MEDS: carvediloL 3.125 MG TAB PO SCH ×3 (00:39→23:06)
--- NOTE | 2019-02-11 01:11 | XRay Report ---
ABDOMEN 1 VIEW INDICATION / CLINICAL INFORMATION: Evaluate NG tube placement. COMPARISON: Abdominal radiographs from 02/10/2019. FINDINGS: TUBES / LINES: An NG tube terminates over the gastric fundus. BOWEL GAS PATTERN: Small bowel dilatation has slightly improved. Scattered gas is seen along the colo n. FREE AIR / EXTRALUMINAL GAS: None seen. ADDITIONAL FINDINGS: No significant additional findings. IMPRESSION: 1. Interval placement of an NG tube, which is in good position. 2. Improved small bowel dilatation. Signer Name: Nghia Grimes MD Signed: 02/11/2019 1:07 AM Workstation Name: [id number]
[2019-02-11 05:39] LABS: Hemoglobin 12.5 gm/dl (11.8-15.2); Mean Corpuscular HGB Conc 34 % (32-34); Mean Corpuscular Volume 81 fl (84-94); Platelet Count 312 K/mm3 (140-440); Red Blood Count 4.58 M/mm3 (3.65-5.03); Red Cell Distribution Width 12.7 % (13.2-15.2)
[2019-02-11 05:48] LABS: Alanine Aminotransferase 16 units/L (7-56); Albumin 3.5 g/dL (3.9-5); BUN/Creatinine Ratio 31; Blood Urea Nitrogen 22 mg/dL (9-20); Calcium 9.4 mg/dL (8.4-10.2); Hemolysis Index 4
[2019-02-11 06:26] LABS: Anisocytosis 1+; Band Neutrophils # (Manual) 0.3 K/mm3; Basophils % (Manual) 0 % (0.0-1.8); Total Cells Counted 100
[2019-02-11 06:27] LABS: Platelet Estimate Consistent w Auto
[2019-02-11] MEDS: INSULIN LISPRO 100 UNIT/ML SUB-Q SCH ×4 (08:50→23:11)
[2019-02-11] MEDS ORDERED: LISINOPRIL PO SCH (10:00)
[2019-02-11] MEDS: ASPIRIN 81 MG TAB CHEW PO SCH (11:42)
[2019-02-11] MEDS: LISINOPRIL 10 MG TAB PO SCH (11:42)
--- NOTE | 2019-02-11 14:08 | Progress Note ---
Assessment and Plan 63 yo M with SBO, partial Patient stable without abdominal pain and now having resumption of bowel function. Obs series - distended loops of small bowel. NGT in place. Air in colon. Plan: 1. DC NGT as it has not had significant output for the last 24 hours. Positioning was confirmed by xray 2. start trial of clear liquids 3. IVF 4. Bowel regimen 5. repeat labs in am and replace lytes as needed Thank you, please call with questions. No family at bedside. Subjective Date of service: 02/11/19 Narrative: Pt seen and examined. No acute complaints. Had a BM last night. +Flatus. No n/v. Feels hungry. Objective Vital Signs - 12hr 02/11/19 02/11/19 04:23 11:49 Temperature 98.3 F 97.4 F L Pulse Rate 96 H Respiratory 16 18 Rate Blood Pressure 155/83 158/95 O2 Sat by Pulse 97 Oximetry - General physical appearance Narrative Exam: Gen: AAOx3. NAD ENT: NGT with scant clear gastric drainage CV: S1, S2+ Resp: even and unlabored Abd: soft, NT, mildly distended. No r/r/g. Ext: no c/c/e - Labs 02/11/19 04:52 02/11/19 04:52 Diabetes panel 02/11/19 Range/Units 04:52 Sodium 135 L (137-145) mmol/L Potassium 4.1 (3.6-5.0) mmol/L Chloride 100.7 (98-107) mmol/L Carbon Dioxide 24 (22-30) mmol/L BUN 22 H (9-20) mg/dL Creatinine 0.7 L (0.8-1.5) mg/dL Glucose 234 H (75-100) mg/dL Calcium 9.4 (8.4-10.2) mg/dL AST 14 (5-40) units/L ALT 16 (7-56) units/L Alkaline Phosphatase 72 (35-129) units/L Total Protein 6.6 (6.3-8.2) g/dL Albumin 3.5 L (3.9-5) g/dL Thyroid panel 02/10/19 Range/Units 19:51 TSH 0.380 (0.270-4.200) mlU/mL Calcium panel 02/11/19 Range/Units 04:52 Calcium 9.4 (8.4-10.2) mg/dL Albumin 3.5 L (3.9-5) g/dL Pituitary panel 02/10/19 02/11/19 Range/Units 19:51 04:52 Sodium 135 L (137-145) mmol/L Potassium 4.1 (3.6-5.0) mmol/L Chloride 100.7 (98-107) mmol/L Carbon Dioxide 24 (22-30) mmol/L BUN 22 H (9-20) mg/dL Creatinine 0.7 L (0.8-1.5) mg/dL Glucose 234 H (75-100) mg/dL Calcium 9.4 (8.4-10.2) mg/dL TSH 0.380 (0.270-4.200) mlU/mL Adrenal panel 02/11/19 Range/Units 04:52 Sodium 135 L (137-145) mmol/L Potassium 4.1 (3.6-5.0) mmol/L Chloride 100.7 (98-107) mmol/L Carbon Dioxide 24 (22-30) mmol/L BUN 22 H (9-20) mg/dL Creatinine 0.7 L (0.8-1.5) mg/dL Glucose 234 H (75-100) mg/dL Calcium 9.4 (8.4-10.2) mg/dL Total Bilirubin 0.50 (0.1-1.2) mg/dL AST 14 (5-40) units/L ALT 16 (7-56) units/L Alkaline Phosphatase 72 (35-129) units/L Total Protein 6.6 (6.3-8.2) g/dL Albumin 3.5 L (3.9-5) g/dL
--- NOTE | 2019-02-11 15:19 | Progress Note ---
Assessment and Plan Assessment and plan: 63 YO Male with HTN, Nicotine Dependence, ETOH Dependence, DM, CAD S/P Stent Placement, HLD, CVA with LHP presents to ED for evaluation. Pt is confused, and lethargic and unable to provide detailed history. Pt merely points to his abdomen and states that" Its been Hurting". No further history obtainable. Additional history taken from EMS staff, and ED staff. As per staff, the patient has experienced abdominal pain over the past 2 weeks with persistent symptoms over the same time frame. EMS notified, and upon arrival the patient was found to be in distress and transported to [facility]. Pt seen and evaluated in ED and found to have SBO, Encephalopathy, as well as UTI. Pt admitted to medical floor for treatment of UTI as well as High grade SBO. Surgical team consulted in ED. * On admission concern for small bowel obstruction urinary tract infection. NG tube was placed to low intermittent suction. Surgery was consulted KUB serially obtained. * CT head showed no acute abnormality. * Today abdomen is fairly benign. Agree with surgery that NG tube will be discontinued and will start patient on clear liquid diet. And if continues to improve by a.m. patient probably will be discharged in a day or 2 based on clinical outcome. * Patient has an underlying cardiomyopathy with an EF of 15% with no acute cardiac symptoms is noted at this time. (1) SBO (small bowel obstruction) Current Visit: Yes Status: Acute Plan to address problem: Surgery consulted, Start gentle hydration and clear liquid diet Appears to have been resolving (2) Encephalopathy Current Visit: Yes Status: Acute Plan to address problem: neuro check, aspiration precautions, fall precautions, thyroid panel Resolved patient is vocal and verbal. (3) Alcohol dependence Current Visit: Yes Status: Acute Qualifiers: Complication of substance-induced condition: with perceptual disturbance Plan to address problem: CIWA protocol, Blood Alcohol Level, Ativan prn (4) UTI (urinary tract infection) Current Visit: Yes Status: Acute Qualifiers: Encounter type: initial encounter Plan to address problem: IV antibiotic therapy, Await culture. (5) Nicotine dependence Current Visit: Yes Status: Acute Qualifiers: Substance use status: in withdrawal Plan to address problem: Supportive care, smoking cessation counseling, +15min (6) diabetes mellitus with hyperglycemia Sliding scale insulin at this point. (7)DVT prophylaxis Current Visit: Yes Status: Acute Plan to address problem: SCD to BLE while in bed Plan of care discussed with family at the bedside. History Interval history: Patient seen and examined no acute distress at this time he voices that he is hungry family at the bedside. No other adverse event reported to me by nursing staff. Hospitalist Physical - Physical exam Narrative exam: VITAL SIGNS: Reviewed. GENERAL: The patient appears normally developed, NG tube to nares vital signs as documented. HEAD: No signs of head trauma. EYES: Pupils are equal. Extraocular motions intact. EARS: Hearing grossly intact. MOUTH: Oropharynx is normal. NECK: No adenopathy, no JVD. CHEST: Chest with clear breath sounds bilaterally. No wheezes, rales, or rhonchi. CARDIAC: Regular rate and rhythm. S1 and S2, without murmurs, gallops, or rubs. VASCULAR: No Edema. Peripheral pulses normal and equal in all extremities. ABDOMEN: Soft, non tender and non distended. No rebound or guarding, and no masses palpated. Bowel Sounds normal. MUSCULOSKELETAL: Good range of motion of all major joints. Extremities without clubbing, cyanosis or edema. NEUROLOGIC EXAM: Alert and oriented x 3 No focal sensory or strength deficits. Speech normal. Follows commands. PSYCHIATRIC: Mood normal. SKIN: detail exam as documented in skin assessment - Constitutional Vitals: Temp Pulse Resp BP Pulse Ox 97.4 F L 96 H 18 158/95 97 02/11/19 11:49 02/11/19 11:49 02/11/19 11:49 02/11/19 11:49 02/11/19 11:49 General appearance: Present: mild distress Results - Labs CBC & Chem 7: 02/11/19 04:52 02/11/19 04:52 Labs: Laboratory Last Values WBC 6.0 K/mm3 (4.5-11.0) 02/11/19 04:52 RBC 4.58 M/mm3 (3.65-5.03) 02/11/19 04:52 Hgb 12.5 gm/dl (11.8-15.2) 02/11/19 04:52 Hct 37.0 % (35.5-45.6) 02/11/19 04:52 MCV 81 fl (84-94) L 02/11/19 04:52 MCH 27 pg (28-32) L 02/11/19 04:52 MCHC 34 % (32-34) 02/11/19 04:52 RDW 12.7 % (13.2-15.2) L 02/11/19 04:52 Plt Count 312 K/mm3 (140-440) 02/11/19 04:52 Lymph % (Auto) 9.2 % (13.4-35.0) L 02/10/19 04:22 [place] % (Auto) Surface Grinding Machine Hand 02/11/19 04:52 Eos % (Auto) 0.4 % (0.0-4.3) 02/10/19 04:22 Baso % (Auto) 0.2 % (0.0-1.8) 02/10/19 04:22 Lymph # 0.5 K/mm3 (1.2-5.4) L 02/10/19 04:22 [place] # 0.7 K/mm3 (0.0-0.8) 02/10/19 04:22 Eos # 0.0 K/mm3 (0.0-0.4) 02/10/19 04:22 Baso # 0.0 K/mm3 (0.0-0.1) 02/10/19 04:22 Add Manual Diff Complete 02/11/19 04:52 Total Counted 100 02/11/19 04:52 Seg Neutrophils % 76.2 % (40.0-70.0) H 02/10/19 04:22 Seg Neuts % (Manual) 64.0 % (40.0-70.0) 02/11/19 04:52 Band Neutrophils % 5.0 % 02/11/19 04:52 Lymphocytes % (Manual) 12.0 % (13.4-35.0) L 02/11/19 04:52 Reactive Lymphs % (Man) 0 % 02/11/19 04:52 Monocytes % (Manual) 18.0 % (0.0-7.3) H 02/11/19 04:52 Eosinophils % (Manual) 1.0 % (0.0-4.3) 02/11/19 04:52 Basophils % (Manual) 0 % (0.0-1.8) 02/11/19 04:52 Metamyelocytes % 0 % 02/11/19 04:52 Myelocytes % 0 % 02/11/19 04:52 Promyelocytes % 0 % 02/11/19 04:52 Blast Cells % 0 % 02/11/19 04:52 Nucleated RBC % Not Reportable 02/11/19 04:52 Seg Neutrophils # 3.9 K/mm3 (1.8-7.7) 02/10/19 04:22 Seg Neutrophils # Man 3.8 K/mm3 (1.8-7.7) 02/11/19 04:52 Band Neutrophils # 0.3 K/mm3 02/11/19 04:52 Lymphocytes # (Manual) 0.7 K/mm3 (1.2-5.4) L 02/11/19 04:52 Abs React Lymphs (Man) 0.0 K/mm3 02/11/19 04:52 Monocytes # (Manual) 1.1 K/mm3 (0.0-0.8) H 02/11/19 04:52 Eosinophils # (Manual) 0.1 K/mm3 (0.0-0.4) 02/11/19 04:52 Basophils # (Manual) 0.0 K/mm3 (0.0-0.1) 02/11/19 04:52 Metamyelocytes # 0.0 K/mm3 02/11/19 04:52 Myelocytes # 0.0 K/mm3 02/11/19 04:52 Promyelocytes # 0.0 K/mm3 02/11/19 04:52 Blast Cells # 0.0 K/mm3 02/11/19 04:52 WBC Morphology Not Reportable 02/11/19 04:52 Hypersegmented Neuts Not Reportable 02/11/19 04:52 Hyposegmented Neuts Not Reportable 02/11/19 04:52 Hypogranular Neuts Not Reportable 02/11/19 04:52 Smudge Cells Not Reportable 02/11/19 04:52 Toxic Granulation Not Reportable 02/11/19 04:52 Toxic Vacuolation Not Reportable 02/11/19 04:52 Dohle Bodies Not Reportable 02/11/19 04:52 Pelger-Huet Anomaly Not Reportable 02/11/19 04:52 Na Rods Not Reportable 02/11/19 04:52 Platelet Estimate Consistent w auto 02/11/19 04:52 Clumped Platelets Not Reportable 02/11/19 04:52 Plt Clumps, EDTA Not Reportable 02/11/19 04:52 Large Platelets Not Reportable 02/11/19 04:52 Giant Platelets Not Reportable 02/11/19 04:52 Platelet Satelliting Not Reportable 02/11/19 04:52 Plt Morphology Comment Not Reportable 02/11/19 04:52 RBC Morphology Not Reportable 02/11/19 04:52 Dimorphic RBCs Not Reportable 02/11/19 04:52 Polychromasia Not Reportable 02/11/19 04:52 Hypochromasia Not Reportable 02/11/19 04:52 Poikilocytosis Not Reportable 02/11/19 04:52 Anisocytosis 1+ 02/11/19 04:52 Microcytosis Not Reportable 02/11/19 04:52 Macrocytosis Not Reportable 02/11/19 04:52 Spherocytes Not Reportable 02/11/19 04:52 Pappenheimer Bodies Not Reportable 02/11/19 04:52 Sickle Cells Not Reportable 02/11/19 04:52 Target Cells Not Reportable 02/11/19 04:52 Tear Drop Cells Not Reportable 02/11/19 04:52 Ovalocytes Not Reportable 02/11/19 04:52 Helmet Cells Not Reportable 02/11/19 04:52 [place] Bodies Not Reportable 02/11/19 04:52 [place] Rings Not Reportable 02/11/19 04:52 [place] Cells Not Reportable 02/11/19 04:52 Bite Cells Not Reportable 02/11/19 04:52 Crenated Cell Not Reportable 02/11/19 04:52 Elliptocytes Not Reportable 02/11/19 04:52 Acanthocytes (Spur) Not Reportable 02/11/19 04:52 Rouleaux Not Reportable 02/11/19 04:52 Hemoglobin C Crystals Not Reportable 02/11/19 04:52 Schistocytes Not Reportable 02/11/19 04:52 Malaria parasites Not Reportable 02/11/19 04:52 Maninder Bodies Not Reportable 02/11/19 04:52 Hem Pathologist Commnt No 02/11/19 04:52 Sodium 135 mmol/L (137-145) L 02/11/19 04:52 Potassium 4.1 mmol/L (3.6-5.0) 02/11/19 04:52 Chloride 100.7 mmol/L (98-107) 02/11/19 04:52 Carbon Dioxide 24 mmol/L (22-30) 02/11/19 04:52 Anion Gap 14 mmol/L 02/11/19 04:52 BUN 22 mg/dL (9-20) H 02/11/19 04:52 Creatinine 0.7 mg/dL (0.8-1.5) L 02/11/19 04:52 Estimated GFR > 60 ml/min 02/11/19 04:52 BUN/Creatinine Ratio 31 % 02/11/19 04:52 Glucose 234 mg/dL (75-100) H 02/11/19 04:52 POC Glucose 197 (70-105) H 02/11/19 11:33 Lactic Acid 1.50 mmol/L (0.7-2.0) 02/10/19 08:58 Calcium 9.4 mg/dL (8.4-10.2) 02/11/19 04:52 Magnesium 1.60 mg/dL (1.7-2.3) L 02/10/19 06:59 Total Bilirubin 0.50 mg/dL (0.1-1.2) 02/11/19 04:52 AST 14 units/L (5-40) 02/11/19 04:52 ALT 16 units/L (7-56) 02/11/19 04:52 Alkaline Phosphatase 72 units/L (35-129) 02/11/19 04:52 Ammonia 36.0 umol/L (25-60) 02/10/19 06:59 Total Creatine Kinase 102 units/L (55-170) 02/10/19 06:59 Total Protein 6.6 g/dL (6.3-8.2) 02/11/19 04:52 Albumin 3.5 g/dL (3.9-5) L 02/11/19 04:52 Albumin/Globulin Ratio 1.1 % 02/11/19 04:52 Lipase 18 units/L (13-60) 02/10/19 04:49 TSH 0.380 mlU/mL (0.270-4.200) 02/10/19 19:51 Free T4 1.01 ng/dL (0.76-1.46) 02/10/19 19:51 Urine Color Yellow (Yellow) 02/10/19 06:56 Urine Turbidity Slightly-cloudy (Clear) 02/10/19 06:56 Urine pH 5.0 (5.0-7.0) 02/10/19 06:56 Ur Specific [place] 1.032 (1.003-1.030) H 02/10/19 06:56 Urine Protein 30 mg/dl mg/dL (Negative) 02/10/19 06:56 Urine Glucose (UA) >=500 mg/dL (Negative) 02/10/19 06:56 Urine Ketones Tr mg/dL (Negative) 02/10/19 06:56 Urine Blood Neg (Negative) 02/10/19 06:56 Urine Nitrite Neg (Negative) 02/10/19 06:56 Urine Bilirubin Neg (Negative) 02/10/19 06:56 Urine Urobilinogen < 2.0 mg/dL (<2.0) 02/10/19 06:56 Ur Leukocyte Esterase Tr (Negative) 02/10/19 06:56 Urine WBC (Auto) 10.0 /HPF (0.0-6.0) H 02/10/19 06:56 Urine RBC (Auto) 3.0 /HPF (0.0-6.0) 02/10/19 06:56 U Epithel Cells (Auto) 4.0 /HPF (0-13.0) 02/10/19 06:56 Urine Bacteria (Auto) 1+ /HPF (Negative) 02/10/19 06:56 Urine Mucus Few /HPF 02/10/19 06:56 Salicylates < 0.3 mg/dL (2.8-20.0) L 02/10/19 06:59 Urine Opiates Screen Presumptive negative 02/10/19 06:56 Urine Methadone Screen Presumptive negative 02/10/19 06:56 Acetaminophen < 5.0 ug/mL (10.0-30.0) L 02/10/19 06:59 Ur Barbiturates Screen Presumptive negative 02/10/19 06:56 Ur Phencyclidine Scrn Presumptive negative 02/10/19 06:56 Ur Amphetamines Screen Presumptive negative 02/10/19 06:56 U Benzodiazepines Scrn Presumptive negative 02/10/19 06:56 Urine Cocaine Screen Presumptive negative 02/10/19 06:56 U Marijuana (THC) Screen Presumptive positive 02/10/19 06:56 Drugs of Abuse Note Disclamer 02/10/19 06:56 Plasma/Serum Alcohol < 0.01 % (0-0.07) 02/10/19 06:59 Active Medications - Current Medications Current Medications: Generic Name Dose Route Start Last Admin Trade Name Freq PRN Reason Stop Dose Admin Acetaminophen 650 mg 02/10/19 12:23 Tylenol PO Q4H PRN Pain MILD(1-3)/Fever >100.5/DEVLIN Albuterol 2.5 mg 02/10/19 12:23 Proventil IH Q4HRT PRN Shortness Of Breath Aspirin 81 mg 02/10/19 14:00 02/11/19 11:42 Baby Aspirin PO Not Given DAILY [facility] Atorvastatin Calcium 40 mg 02/10/19 22:00 02/11/19 00:40 Lipitor PO Not Given QHS JAX Bisacodyl 10 mg 02/12/19 10:00 Dulcolax TX QDAY JAX Carvedilol 3.125 mg 02/10/19 12:45 02/11/19 11:42 Coreg PO Not Given BID [facility] Dextrose 50 ml 02/10/19 12:25 D50w (25gm) Syringe IV Q30MIN PRN Hypoglycemia Protocol Docusate Sodium 100 mg 02/11/19 22:00 Colace PO BID [facility] Hydralazine HCl 10 mg 02/10/19 15:57 02/10/19 17:04 Apresoline IV 10 mg Q6HR PRN Administration sbp>160 Sodium Chloride 1,000 mls @ 42 mls/hr 02/10/19 12:30 02/10/19 16:02 Nacl 0.9% 1000 Ml IV 42 mls/hr DIRECT JAX Administration Insulin Human Lispro 0 unit 02/10/19 12:30 02/11/19 12:20 Humalog SUB-Q 1 unit ACHS JAX Administration Protocol Lisinopril 30 mg 02/10/19 14:00 02/11/19 11:42 Zestril PO Not Given QDAY JAX Lorazepam 2 mg 02/10/19 14:52 Ativan IV Q1HR PRN CIWA-Ar 8-15 Morphine Sulfate 2 mg 02/10/19 12:23 Morphine IV Q6H PRN Pain, Moderate (4-6) Ondansetron HCl 4 mg 02/10/19 12:23 Zofran IV Q8H PRN Nausea And Vomiting Sodium Chloride 10 ml 02/10/19 22:00 02/11/19 11:43 Sodium Chloride Flush Syringe 10 Ml IV 10 ml BID JAX Administration Sodium Chloride 10 ml 02/10/19 12:23 Sodium Chloride Flush Syringe 10 Ml IV PRN PRN LINE FLUSH
[2019-02-11] MEDS ORDERED: DEXTROSE 50% IN WATER (25GM) 50 ML SYRINGE IV PRN (15:23)
[2019-02-11] MEDS: hydrALAZINE 20 MG/1 ML INJ IV PRN (17:43)
[2019-02-11] MEDS: INSULIN GLARGINE 100 UNITS/ML SUB-Q SCH (23:04)
[2019-02-11] MEDS: DOCUSATE SODIUM 100 MG/10 ML ORAL LIQD PO SCH (23:05)
[2019-02-12] MEDS: MORPHINE 2 MG/1 ML INJ IV PRN ×2 (07:12→22:40)
[2019-02-12] MEDS: INSULIN LISPRO 100 UNIT/ML SUB-Q SCH ×4 (09:09→22:47)
[2019-02-12] MEDS: carvediloL 3.125 MG TAB PO SCH ×2 (09:15→21:11)
[2019-02-12] MEDS: DOCUSATE SODIUM 100 MG/10 ML ORAL LIQD PO SCH ×2 (09:15→21:11)
[2019-02-12] MEDS: ASPIRIN 81 MG TAB CHEW PO SCH (09:16)
[2019-02-12] MEDS: LISINOPRIL 10 MG TAB PO SCH (09:16)
--- NOTE | 2019-02-12 11:31 | Progress Note ---
Assessment and Plan Assessment and plan: 63 YO Male with HTN, Nicotine Dependence, ETOH Dependence, DM, CAD S/P Stent Placement, HLD, CVA with LHP presents to ED for evaluation. Pt is confused, and lethargic and unable to provide detailed history. Pt merely points to his abdomen and states that" Its been Hurting". No further history obtainable. Additional history taken from EMS staff, and ED staff. As per staff, the patient has experienced abdominal pain over the past 2 weeks with persistent symptoms over the same time frame. EMS notified, and upon arrival the patient was found to be in distress and transported to [facility]. Pt seen and evaluated in ED and found to have SBO, Encephalopathy, as well as UTI. Pt admitted to medical floor for treatment of UTI as well as High grade SBO. Surgical team consulted in ED. * On admission concern for small bowel obstruction urinary tract infection. NG tube was placed to low intermittent suction. Surgery was consulted KUB serially obtained. * CT head showed no acute abnormality. * Today abdomen is fairly benign. Agree with surgery that NG tube will be discontinued and will start patient on clear liquid diet. And if continues to improve by a.m. patient probably will be discharged in a day or 2 based on clinical outcome. * Patient has an underlying cardiomyopathy with an EF of 15% with no acute cardiac symptoms is noted at this time. * Failed PO, will monitor for lunch and dinner. (1) SBO (small bowel obstruction) Current Visit: Yes Status: Acute Plan to address problem: Surgery consulted, CONTINUE gentle hydration and clear liquid diet Appears to have been resolving (2) Encephalopathy Current Visit: Yes Status: Acute Plan to address problem: neuro check, aspiration precautions, fall precautions, thyroid panel Resolved patient is vocal and verbal. (3) Alcohol dependence Current Visit: Yes Status: Acute Qualifiers: Complication of substance-induced condition: with perceptual disturbance Plan to address problem: CIWA protocol, Blood Alcohol Level, Ativan prn (4) UTI (urinary tract infection) Current Visit: Yes Status: Acute Qualifiers: Encounter type: initial encounter Plan to address problem: IV antibiotic therapy, Await culture. (5) Nicotine dependence Current Visit: Yes Status: Acute Qualifiers: Substance use status: in withdrawal Plan to address problem: Supportive care, smoking cessation counseling, +15min (6) diabetes mellitus with hyperglycemia Sliding scale insulin at this point, Will adjust (7)DVT prophylaxis Current Visit: Yes Status: Acute Plan to address problem: SCD to BLE while in bed Discussed with Nursing and Surgeon. No family at bedside. History Interval history: Patient seen and examined no acute distress at this time although still lethargic, today Nursing informs me that he did not tolerate his diet. Hospitalist Physical - Physical exam Narrative exam: VITAL SIGNS: Reviewed. GENERAL: The patient appears normally developed, Lethargic, vital signs as documented. HEAD: No signs of head trauma. EYES: Pupils are equal. Extraocular motions intact. EARS: Hearing grossly intact. MOUTH: Oropharynx is normal. NECK: No adenopathy, no JVD. CHEST: Chest with clear breath sounds bilaterally. No wheezes, rales, or rhonchi. CARDIAC: Regular rate and rhythm. S1 and S2, without murmurs, gallops, or rubs. VASCULAR: No Edema. Peripheral pulses normal and equal in all extremities. ABDOMEN: Soft, non tender but distended. No rebound or guarding, and no masses palpated. Bowel Sounds normal. MUSCULOSKELETAL: Good range of motion of all major joints. Extremities without clubbing, cyanosis or edema. NEUROLOGIC EXAM: awakeand oriented x 3 No focal sensory or strength deficits. Speech normal. Follows commands. PSYCHIATRIC: Mood normal. SKIN: detail exam as documented in skin assessment - Constitutional Vitals: Temp Pulse Resp BP Pulse Ox 98.1 F 94 H 20 176/112 98 02/12/19 04:25 02/12/19 09:16 02/12/19 04:25 02/12/19 09:16 02/12/19 04:25 General appearance: Present: mild distress Results - Labs CBC & Chem 7: 02/11/19 04:52 02/11/19 04:52 Labs: Laboratory Last Values WBC 6.0 K/mm3 (4.5-11.0) 02/11/19 04:52 RBC 4.58 M/mm3 (3.65-5.03) 02/11/19 04:52 Hgb 12.5 gm/dl (11.8-15.2) 02/11/19 04:52 Hct 37.0 % (35.5-45.6) 02/11/19 04:52 MCV 81 fl (84-94) L 02/11/19 04:52 MCH 27 pg (28-32) L 02/11/19 04:52 MCHC 34 % (32-34) 02/11/19 04:52 RDW 12.7 % (13.2-15.2) L 02/11/19 04:52 Plt Count 312 K/mm3 (140-440) 02/11/19 04:52 Lymph % (Auto) 9.2 % (13.4-35.0) L 02/10/19 04:22 Dent % (Auto) Media Sales Consultant 02/11/19 04:52 Eos % (Auto) 0.4 % (0.0-4.3) 02/10/19 04:22 Baso % (Auto) 0.2 % (0.0-1.8) 02/10/19 04:22 Lymph # 0.5 K/mm3 (1.2-5.4) L 02/10/19 04:22 Dent # 0.7 K/mm3 (0.0-0.8) 02/10/19 04:22 Eos # 0.0 K/mm3 (0.0-0.4) 02/10/19 04:22 Baso # 0.0 K/mm3 (0.0-0.1) 02/10/19 04:22 Add Manual Diff Complete 02/11/19 04:52 Total Counted 100 02/11/19 04:52 Seg Neutrophils % 76.2 % (40.0-70.0) H 02/10/19 04:22 Seg Neuts % (Manual) 64.0 % (40.0-70.0) 02/11/19 04:52 Band Neutrophils % 5.0 % 02/11/19 04:52 Lymphocytes % (Manual) 12.0 % (13.4-35.0) L 02/11/19 04:52 Reactive Lymphs % (Man) 0 % 02/11/19 04:52 Monocytes % (Manual) 18.0 % (0.0-7.3) H 02/11/19 04:52 Eosinophils % (Manual) 1.0 % (0.0-4.3) 02/11/19 04:52 Basophils % (Manual) 0 % (0.0-1.8) 02/11/19 04:52 Metamyelocytes % 0 % 02/11/19 04:52 Myelocytes % 0 % 02/11/19 04:52 Promyelocytes % 0 % 02/11/19 04:52 Blast Cells % 0 % 02/11/19 04:52 Nucleated RBC % Not Reportable 02/11/19 04:52 Seg Neutrophils # 3.9 K/mm3 (1.8-7.7) 02/10/19 04:22 Seg Neutrophils # Man 3.8 K/mm3 (1.8-7.7) 02/11/19 04:52 Band Neutrophils # 0.3 K/mm3 02/11/19 04:52 Lymphocytes # (Manual) 0.7 K/mm3 (1.2-5.4) L 02/11/19 04:52 Abs React Lymphs (Man) 0.0 K/mm3 02/11/19 04:52 Monocytes # (Manual) 1.1 K/mm3 (0.0-0.8) H 02/11/19 04:52 Eosinophils # (Manual) 0.1 K/mm3 (0.0-0.4) 02/11/19 04:52 Basophils # (Manual) 0.0 K/mm3 (0.0-0.1) 02/11/19 04:52 Metamyelocytes # 0.0 K/mm3 02/11/19 04:52 Myelocytes # 0.0 K/mm3 02/11/19 04:52 Promyelocytes # 0.0 K/mm3 02/11/19 04:52 Blast Cells # 0.0 K/mm3 02/11/19 04:52 WBC Morphology Not Reportable 02/11/19 04:52 Hypersegmented Neuts Not Reportable 02/11/19 04:52 Hyposegmented Neuts Not Reportable 02/11/19 04:52 Hypogranular Neuts Not Reportable 02/11/19 04:52 Smudge Cells Not Reportable 02/11/19 04:52 Toxic Granulation Not Reportable 02/11/19 04:52 Toxic Vacuolation Not Reportable 02/11/19 04:52 Dohle Bodies Not Reportable 02/11/19 04:52 Pelger-Huet Anomaly Not Reportable 02/11/19 04:52 Na Rods Not Reportable 02/11/19 04:52 Platelet Estimate Consistent w auto 02/11/19 04:52 Clumped Platelets Not Reportable 02/11/19 04:52 Plt Clumps, EDTA Not Reportable 02/11/19 04:52 Large Platelets Not Reportable 02/11/19 04:52 Giant Platelets Not Reportable 02/11/19 04:52 Platelet Satelliting Not Reportable 02/11/19 04:52 Plt Morphology Comment Not Reportable 02/11/19 04:52 RBC Morphology Not Reportable 02/11/19 04:52 Dimorphic RBCs Not Reportable 02/11/19 04:52 Polychromasia Not Reportable 02/11/19 04:52 Hypochromasia Not Reportable 02/11/19 04:52 Poikilocytosis Not Reportable 02/11/19 04:52 Anisocytosis 1+ 02/11/19 04:52 Microcytosis Not Reportable 02/11/19 04:52 Macrocytosis Not Reportable 02/11/19 04:52 Spherocytes Not Reportable 02/11/19 04:52 Pappenheimer Bodies Not Reportable 02/11/19 04:52 Sickle Cells Not Reportable 02/11/19 04:52 Target Cells Not Reportable 02/11/19 04:52 Tear Drop Cells Not Reportable 02/11/19 04:52 Ovalocytes Not Reportable 02/11/19 04:52 Helmet Cells Not Reportable 02/11/19 04:52 [place] Bodies Not Reportable 02/11/19 04:52 [place] Rings Not Reportable 02/11/19 04:52 Debbie Cells Not Reportable 02/11/19 04:52 Bite Cells Not Reportable 02/11/19 04:52 Crenated Cell Not Reportable 02/11/19 04:52 Elliptocytes Not Reportable 02/11/19 04:52 Acanthocytes (Spur) Not Reportable 02/11/19 04:52 Rouleaux Not Reportable 02/11/19 04:52 Hemoglobin C Crystals Not Reportable 02/11/19 04:52 Schistocytes Not Reportable 02/11/19 04:52 Malaria parasites Not Reportable 02/11/19 04:52 Maninder Bodies Not Reportable 02/11/19 04:52 Hem Pathologist Commnt No 02/11/19 04:52 Sodium 135 mmol/L (137-145) L 02/11/19 04:52 Potassium 4.1 mmol/L (3.6-5.0) 02/11/19 04:52 Chloride 100.7 mmol/L (98-107) 02/11/19 04:52 Carbon Dioxide 24 mmol/L (22-30) 02/11/19 04:52 Anion Gap 14 mmol/L 02/11/19 04:52 BUN 22 mg/dL (9-20) H 02/11/19 04:52 Creatinine 0.7 mg/dL (0.8-1.5) L 02/11/19 04:52 Estimated GFR > 60 ml/min 02/11/19 04:52 BUN/Creatinine Ratio 31 % 02/11/19 04:52 Glucose 234 mg/dL (75-100) H 02/11/19 04:52 POC Glucose 144 (70-105) H 02/12/19 08:02 Lactic Acid 1.50 mmol/L (0.7-2.0) 02/10/19 08:58 Calcium 9.4 mg/dL (8.4-10.2) 02/11/19 04:52 Magnesium 1.60 mg/dL (1.7-2.3) L 02/10/19 06:59 Total Bilirubin 0.50 mg/dL (0.1-1.2) 02/11/19 04:52 AST 14 units/L (5-40) 02/11/19 04:52 ALT 16 units/L (7-56) 02/11/19 04:52 Alkaline Phosphatase 72 units/L (35-129) 02/11/19 04:52 Ammonia 36.0 umol/L (25-60) 02/10/19 06:59 Total Creatine Kinase 102 units/L (55-170) 02/10/19 06:59 Total Protein 6.6 g/dL (6.3-8.2) 02/11/19 04:52 Albumin 3.5 g/dL (3.9-5) L 02/11/19 04:52 Albumin/Globulin Ratio 1.1 % 02/11/19 04:52 Lipase 18 units/L (13-60) 02/10/19 04:49 TSH 0.380 mlU/mL (0.270-4.200) 02/10/19 19:51 Free T4 1.01 ng/dL (0.76-1.46) 02/10/19 19:51 Urine Color Yellow (Yellow) 02/10/19 06:56 Urine Turbidity Slightly-cloudy (Clear) 02/10/19 06:56 Urine pH 5.0 (5.0-7.0) 02/10/19 06:56 Ur Specific [place] 1.032 (1.003-1.030) H 02/10/19 06:56 Urine Protein 30 mg/dl mg/dL (Negative) 02/10/19 06:56 Urine Glucose (UA) >=500 mg/dL (Negative) 02/10/19 06:56 Urine Ketones Tr mg/dL (Negative) 02/10/19 06:56 Urine Blood Neg (Negative) 02/10/19 06:56 Urine Nitrite Neg (Negative) 02/10/19 06:56 Urine Bilirubin Neg (Negative) 02/10/19 06:56 Urine Urobilinogen < 2.0 mg/dL (<2.0) 02/10/19 06:56 Ur Leukocyte Esterase Tr (Negative) 02/10/19 06:56 Urine WBC (Auto) 10.0 /HPF (0.0-6.0) H 02/10/19 06:56 Urine RBC (Auto) 3.0 /HPF (0.0-6.0) 02/10/19 06:56 U Epithel Cells (Auto) 4.0 /HPF (0-13.0) 02/10/19 06:56 Urine Bacteria (Auto) 1+ /HPF (Negative) 02/10/19 06:56 Urine Mucus Few /HPF 02/10/19 06:56 Salicylates < 0.3 mg/dL (2.8-20.0) L 02/10/19 06:59 Urine Opiates Screen Presumptive negative 02/10/19 06:56 Urine Methadone Screen Presumptive negative 02/10/19 06:56 Acetaminophen < 5.0 ug/mL (10.0-30.0) L 02/10/19 06:59 Ur Barbiturates Screen Presumptive negative 02/10/19 06:56 Ur Phencyclidine Scrn Presumptive negative 02/10/19 06:56 Ur Amphetamines Screen Presumptive negative 02/10/19 06:56 U Benzodiazepines Scrn Presumptive negative 02/10/19 06:56 Urine Cocaine Screen Presumptive negative 02/10/19 06:56 U Marijuana (THC) Screen Presumptive positive 02/10/19 06:56 Drugs of Abuse Note Disclamer 02/10/19 06:56 Plasma/Serum Alcohol < 0.01 % (0-0.07) 02/10/19 06:59 Active Medications - Current Medications Current Medications: Generic Name Dose Route Start Last Admin Trade Name Freq PRN Reason Stop Dose Admin Acetaminophen 650 mg 02/10/19 12:23 Tylenol PO Q4H PRN Pain MILD(1-3)/Fever >100.5/DEVLIN Albuterol 2.5 mg 02/10/19 12:23 Proventil IH Q4HRT PRN Shortness Of Breath Aspirin 81 mg 02/10/19 14:00 02/12/19 09:16 Baby Aspirin PO 81 mg DAILY JAX Administration Atorvastatin Calcium 40 mg 02/10/19 22:00 02/11/19 23:10 Lipitor PO 40 mg QHS JAX Administration Bisacodyl 10 mg 02/12/19 10:00 02/12/19 09:16 Dulcolax SC 10 mg QDAY JAX Administration Carvedilol 3.125 mg 02/10/19 12:45 02/12/19 09:15 Coreg PO 3.125 mg BID JAX Administration Dextrose 50 ml 02/10/19 12:25 D50w (25gm) Syringe IV Q30MIN PRN Hypoglycemia Protocol Dextrose 50 ml 02/11/19 15:23 D50w (25gm) Syringe IV Q30MIN PRN Hypoglycemia Protocol Docusate Sodium 100 mg 02/11/19 22:00 02/12/19 09:15 Colace PO 100 mg BID JAX Administration Hydralazine HCl 10 mg 02/12/19 11:26 Apresoline IV Q4HR PRN Hypertension Sodium Chloride 1,000 mls @ 42 mls/hr 02/10/19 12:30 02/10/19 16:02 Nacl 0.9% 1000 Ml IV 42 mls/hr DIRECT JAX Administration Insulin Glargine 10 units 02/11/19 22:00 02/11/19 23:04 Lantus SUB-Q 10 units QHS JAX Administration Insulin Human Lispro 0 unit 02/10/19 12:30 02/12/19 09:09 Humalog SUB-Q Not Given ACHS JAX Protocol Lisinopril 30 mg 02/10/19 14:00 02/12/19 09:16 Zestril PO 30 mg QDAY JAX Administration Lorazepam 2 mg 02/10/19 14:52 Ativan IV Q1HR PRN CIWA-Ar 8-15 Morphine Sulfate 2 mg 02/10/19 12:23 02/12/19 07:12 Morphine IV 2 mg Q6H PRN Administration Pain, Moderate (4-6) Ondansetron HCl 4 mg 02/10/19 12:23 02/12/19 09:16 Zofran IV 4 mg Q8H PRN Administration Nausea And Vomiting Sodium Chloride 10 ml 02/10/19 22:00 02/12/19 09:17 Sodium Chloride Flush Syringe 10 Ml IV 10 ml BID JAX Administration Sodium Chloride 10 ml 02/10/19 12:23 Sodium Chloride Flush Syringe 10 Ml IV PRN PRN LINE FLUSH
--- NOTE | 2019-02-12 11:47 | Progress Note ---
Assessment and Plan 63 yo M with SBO, partial Patient with slowly resolving partial SBO. Plan: 1. continue clear liquids, would not advance 2. IVF 3. Bowel regimen 4. repeat labs in am and replace lytes as needed 5. OOB/ambulate Will follow. Thank you, please call with questions. No family at bedside. Subjective Date of service: 02/12/19 Narrative: Pt seen and examined. c/o mild nausea and abdominal pain. No f/c. No vomiting. Had one BM overnight per RN. Tolerating small amounts of clear liquids. Objective Vital Signs - 12hr 02/12/19 02/12/19 04:25 09:16 Temperature 98.1 F Pulse Rate 89 94 H Respiratory 20 Rate Blood Pressure 165/90 176/112 O2 Sat by Pulse 98 Oximetry - General physical appearance Narrative Exam: Gen: AAOx3. NAD CV: S1, S2+ resp: even and unlabored Abd: soft, moderately distended, NT. No r/r/g. +Bowel sounds in all 4 quadrants Ext: no c/c/e - Labs 02/11/19 04:52 02/11/19 04:52
[2019-02-12] MEDS: hydrALAZINE 20 MG/1 ML INJ IV PRN ×2 (13:19→17:45)
[2019-02-12] MEDS: INSULIN GLARGINE 100 UNITS/ML SUB-Q SCH (22:47)
--- NOTE | 2019-02-13 09:14 | XRay Report ---
ABDOMEN 3 VIEW(S) INDICATION / CLINICAL INFORMATION: Small bowel obstruction. COMPARISON: 02/11/19 FINDINGS: TUBES / LINES: Esophagogastric tube is no longer present. BOWEL GAS PATTERN: Moderately dilated small bowel with numerous air-fluid levels are again noted. Sma ll amount of gas in the colon. FREE AIR / EXTRALUMINAL GAS: None seen. ADDITIONAL FINDINGS: No significant additional findings. LUNGS: Visualized lungs show no significant abnormality. IMPRESSION: 1. Moderate small bowel obstruction with air-fluid levels characteristic of small bowel obstruction. 2. Interval removal of esophagogastric tube. Signer Name: Carmen Hastings MD Signed: 02/13/2019 9:10 AM Workstation Name: [id number]
[2019-02-13] MEDS: INSULIN LISPRO 100 UNIT/ML SUB-Q SCH ×4 (09:19→23:24)
[2019-02-13] MEDS: DOCUSATE SODIUM 100 MG/10 ML ORAL LIQD PO SCH (09:23)
[2019-02-13] MEDS: LISINOPRIL 10 MG TAB PO SCH (09:23)
[2019-02-13] MEDS: carvediloL 3.125 MG TAB PO SCH (09:24)
[2019-02-13] MEDS: ASPIRIN 81 MG TAB CHEW PO SCH (09:24)
[2019-02-13] MEDS: hydrALAZINE 20 MG/1 ML INJ IV PRN (12:33)
--- NOTE | 2019-02-13 13:55 | Progress Note ---
Assessment and Plan 63 yo M with SBO, partial Obs series - dilated small bowel loops. some air in colon. Plan: 1. NPO 2. IVF 3. replace NGT and keep to LIWS 4. repeat labs in am and replace lytes as needed 5. OOB/ambulate 6. recommend cardiology consult for preop risk assessment. If patient does not resolve SBO with conservative management, may need surgical intervention this admission. 7. PPI daily 8. convert PO meds to IV - will defer to hospitalist service Will follow. Plan discussed with SUKHWINDER Bennett Thank you, please call with questions. No family at bedside. Subjective Date of service: 02/13/19 Narrative: Pt seen and examined. c/o crampy abdominal pain in the upper abdomen. +nausea intermittently but no vomiting. No f/c. States he had multiple liquid BMs yesterday. No flatus. Verbally communicating today. Objective Vital Signs - 12hr 02/13/19 02/13/19 02/13/19 05:40 08:24 11:54 Temperature 98.1 F 98.2 F Pulse Rate 97 H 92 H Respiratory 18 20 Rate Blood Pressure 146/95 169/103 O2 Sat by Pulse 98 99 98 Oximetry 02/13/19 12:33 Temperature Pulse Rate Respiratory Rate Blood Pressure 169/103 O2 Sat by Pulse Oximetry - General physical appearance Narrative Exam: Gen: Awake, alert, NAD CV: S1, S2+ Resp: even and unlabored Abd: soft, distended, mild upper abdominal discomfort on palpation. No r/r/g Ext: no c/c/e - Labs 02/11/19 04:52 02/11/19 04:52
[2019-02-13] MEDS ORDERED: METOPROLOL TARTRATE 5 MG/5 ML INJ IV PRN (14:25)
[2019-02-13] MEDS ORDERED: hydrALAZINE 20 MG/1 ML INJ IV PRN (14:26)
--- NOTE | 2019-02-13 14:31 | Progress Note ---
Assessment and Plan Assessment and plan: 63 YO Male with HTN, Nicotine Dependence, ETOH Dependence, DM, CAD S/P Stent Placement, HLD, CVA with LHP presents to ED for evaluation. Pt is confused, and lethargic and unable to provide detailed history. Pt merely points to his abdomen and states that" Its been Hurting". No further history obtainable. Additional history taken from EMS staff, and ED staff. As per staff, the patient has experienced abdominal pain over the past 2 weeks with persistent symptoms over the same time frame. EMS notified, and upon arrival the patient was found to be in distress and transported to [facility]. Pt seen and evaluated in ED and found to have SBO, Encephalopathy, as well as UTI. Pt admitted to medical floor for treatment of UTI as well as High grade SBO. Surgical team consulted in ED. * On admission concern for small bowel obstruction urinary tract infection. NG tube was placed to low intermittent suction. Surgery was consulted KUB serially obtained. * CT head showed no acute abnormality. * Today abdomen is fairly benign. Agree with surgery that NG tube will be discontinued and will start patient on clear liquid diet. And if continues to improve by a.m. patient probably will be discharged in a day or 2 based on clinical outcome. * Patient has an underlying cardiomyopathy with an EF of 15% with no acute cardiac symptoms is noted at this time. * Failed PO, will monitor for lunch and dinner. * Cardiology for pre-op * Change some medication to IV for better BP management. * Currently on conservative management for SBO but may need surgery. (1) SBO (small bowel obstruction) Current Visit: Yes Status: Acute Plan to address problem: Surgery consulted, CONTINUE gentle hydration and clear liquid diet Appears to have been resolving (2) Encephalopathy Current Visit: Yes Status: Acute Plan to address problem: neuro check, aspiration precautions, fall precautions, thyroid panel Resolved patient is vocal and verbal. (3) Alcohol dependence Current Visit: Yes Status: Acute Qualifiers: Complication of substance-induced condition: with perceptual disturbance Plan to address problem: CIWA protocol, Blood Alcohol Level, Ativan prn (4) UTI (urinary tract infection) Current Visit: Yes Status: Acute Qualifiers: Encounter type: initial encounter Plan to address problem: IV antibiotic therapy, Await culture. (5) Nicotine dependence Current Visit: Yes Status: Acute Qualifiers: Substance use status: in withdrawal Plan to address problem: Supportive care, smoking cessation counseling, +15min (6) diabetes mellitus with hyperglycemia Sliding scale insulin at this point, Will adjust (7)DVT prophylaxis Current Visit: Yes Status: Acute Plan to address problem: SCD to BLE while in bed Discussed with Nursing and Surgeon. No family at bedside. History Interval history: Patient seen and examined no acute distress at this time although still lethargic,, multiple liquid BM, only had coffee but nothing else. Hospitalist Physical - Physical exam Narrative exam: VITAL SIGNS: Reviewed. GENERAL: The patient appears normally developed, Lethargic, vital signs as documented. HEAD: No signs of head trauma. EYES: Pupils are equal. Extraocular motions intact. EARS: Hearing grossly intact. MOUTH: Oropharynx is normal. NECK: No adenopathy, no JVD. CHEST: Chest with clear breath sounds bilaterally. No wheezes, rales, or rhonchi. CARDIAC: Regular rate and rhythm. S1 and S2, without murmurs, gallops, or rubs. VASCULAR: No Edema. Peripheral pulses normal and equal in all extremities. ABDOMEN: Soft, non tender but distended. No rebound or guarding, and no masses palpated. Bowel Sounds normal. MUSCULOSKELETAL: Good range of motion of all major joints. Extremities without clubbing, cyanosis or edema. NEUROLOGIC EXAM: awake and oriented x 3 No focal sensory or strength deficits. Speech normal. Follows commands. PSYCHIATRIC: Mood normal. SKIN: detail exam as documented in skin assessment - Constitutional Vitals: Temp Pulse Resp BP Pulse Ox 98.2 F 92 H 20 169/103 98 02/13/19 11:54 02/13/19 11:54 02/13/19 11:54 02/13/19 12:33 02/13/19 11:54 General appearance: Present: mild distress Results - Labs CBC & Chem 7: 02/11/19 04:52 02/11/19 04:52 Labs: Laboratory Last Values WBC 6.0 K/mm3 (4.5-11.0) 02/11/19 04:52 RBC 4.58 M/mm3 (3.65-5.03) 02/11/19 04:52 Hgb 12.5 gm/dl (11.8-15.2) 02/11/19 04:52 Hct 37.0 % (35.5-45.6) 02/11/19 04:52 MCV 81 fl (84-94) L 02/11/19 04:52 MCH 27 pg (28-32) L 02/11/19 04:52 MCHC 34 % (32-34) 02/11/19 04:52 RDW 12.7 % (13.2-15.2) L 02/11/19 04:52 Plt Count 312 K/mm3 (140-440) 02/11/19 04:52 Lymph % (Auto) 9.2 % (13.4-35.0) L 02/10/19 04:22 [place] % (Auto) [employer] [facility] 02/11/19 04:52 Eos % (Auto) 0.4 % (0.0-4.3) 02/10/19 04:22 Baso % (Auto) 0.2 % (0.0-1.8) 02/10/19 04:22 Lymph # 0.5 K/mm3 (1.2-5.4) L 02/10/19 04:22 [place] # 0.7 K/mm3 (0.0-0.8) 02/10/19 04:22 Eos # 0.0 K/mm3 (0.0-0.4) 02/10/19 04:22 Baso # 0.0 K/mm3 (0.0-0.1) 02/10/19 04:22 Add Manual Diff Complete 02/11/19 04:52 Total Counted 100 02/11/19 04:52 Seg Neutrophils % 76.2 % (40.0-70.0) H 02/10/19 04:22 Seg Neuts % (Manual) 64.0 % (40.0-70.0) 02/11/19 04:52 Band Neutrophils % 5.0 % 02/11/19 04:52 Lymphocytes % (Manual) 12.0 % (13.4-35.0) L 02/11/19 04:52 Reactive Lymphs % (Man) 0 % 02/11/19 04:52 Monocytes % (Manual) 18.0 % (0.0-7.3) H 02/11/19 04:52 Eosinophils % (Manual) 1.0 % (0.0-4.3) 02/11/19 04:52 Basophils % (Manual) 0 % (0.0-1.8) 02/11/19 04:52 Metamyelocytes % 0 % 02/11/19 04:52 Myelocytes % 0 % 02/11/19 04:52 Promyelocytes % 0 % 02/11/19 04:52 Blast Cells % 0 % 02/11/19 04:52 Nucleated RBC % Not Reportable 02/11/19 04:52 Seg Neutrophils # 3.9 K/mm3 (1.8-7.7) 02/10/19 04:22 Seg Neutrophils # Man 3.8 K/mm3 (1.8-7.7) 02/11/19 04:52 Band Neutrophils # 0.3 K/mm3 02/11/19 04:52 Lymphocytes # (Manual) 0.7 K/mm3 (1.2-5.4) L 02/11/19 04:52 Abs React Lymphs (Man) 0.0 K/mm3 02/11/19 04:52 Monocytes # (Manual) 1.1 K/mm3 (0.0-0.8) H 02/11/19 04:52 Eosinophils # (Manual) 0.1 K/mm3 (0.0-0.4) 02/11/19 04:52 Basophils # (Manual) 0.0 K/mm3 (0.0-0.1) 02/11/19 04:52 Metamyelocytes # 0.0 K/mm3 02/11/19 04:52 Myelocytes # 0.0 K/mm3 02/11/19 04:52 Promyelocytes # 0.0 K/mm3 02/11/19 04:52 Blast Cells # 0.0 K/mm3 02/11/19 04:52 WBC Morphology Not Reportable 02/11/19 04:52 Hypersegmented Neuts Not Reportable 02/11/19 04:52 Hyposegmented Neuts Not Reportable 02/11/19 04:52 Hypogranular Neuts Not Reportable 02/11/19 04:52 Smudge Cells Not Reportable 02/11/19 04:52 Toxic Granulation Not Reportable 02/11/19 04:52 Toxic Vacuolation Not Reportable 02/11/19 04:52 Dohle Bodies Not Reportable 02/11/19 04:52 Pelger-Huet Anomaly Not Reportable 02/11/19 04:52 Na Rods Not Reportable 02/11/19 04:52 Platelet Estimate Consistent w auto 02/11/19 04:52 Clumped Platelets Not Reportable 02/11/19 04:52 Plt Clumps, EDTA Not Reportable 02/11/19 04:52 Large Platelets Not Reportable 02/11/19 04:52 Giant Platelets Not Reportable 02/11/19 04:52 Platelet Satelliting Not Reportable 02/11/19 04:52 Plt Morphology Comment Not Reportable 02/11/19 04:52 RBC Morphology Not Reportable 02/11/19 04:52 Dimorphic RBCs Not Reportable 02/11/19 04:52 Polychromasia Not Reportable 02/11/19 04:52 Hypochromasia Not Reportable 02/11/19 04:52 Poikilocytosis Not Reportable 02/11/19 04:52 Anisocytosis 1+ 02/11/19 04:52 Microcytosis Not Reportable 02/11/19 04:52 Macrocytosis Not Reportable 02/11/19 04:52 Spherocytes Not Reportable 02/11/19 04:52 Pappenheimer Bodies Not Reportable 02/11/19 04:52 Sickle Cells Not Reportable 02/11/19 04:52 Target Cells Not Reportable 02/11/19 04:52 Tear Drop Cells Not Reportable 02/11/19 04:52 Ovalocytes Not Reportable 02/11/19 04:52 Helmet Cells Not Reportable 02/11/19 04:52 David-Luke Bodies Not Reportable 02/11/19 04:52 [place] Rings Not Reportable 02/11/19 04:52 [place] Cells Not Reportable 02/11/19 04:52 Bite Cells Not Reportable 02/11/19 04:52 Crenated Cell Not Reportable 02/11/19 04:52 Elliptocytes Not Reportable 02/11/19 04:52 Acanthocytes (Spur) Not Reportable 02/11/19 04:52 Rouleaux Not Reportable 02/11/19 04:52 Hemoglobin C Crystals Not Reportable 02/11/19 04:52 Schistocytes Not Reportable 02/11/19 04:52 Malaria parasites Not Reportable 02/11/19 04:52 Maninder Bodies Not Reportable 02/11/19 04:52 Hem Pathologist Commnt No 02/11/19 04:52 Sodium 135 mmol/L (137-145) L 02/11/19 04:52 Potassium 4.1 mmol/L (3.6-5.0) 02/11/19 04:52 Chloride 100.7 mmol/L (98-107) 02/11/19 04:52 Carbon Dioxide 24 mmol/L (22-30) 02/11/19 04:52 Anion Gap 14 mmol/L 02/11/19 04:52 BUN 22 mg/dL (9-20) H 02/11/19 04:52 Creatinine 0.7 mg/dL (0.8-1.5) L 02/11/19 04:52 Estimated GFR > 60 ml/min 02/11/19 04:52 BUN/Creatinine Ratio 31 % 02/11/19 04:52 Glucose 234 mg/dL (75-100) H 02/11/19 04:52 POC Glucose 152 (70-105) H 02/13/19 12:03 Lactic Acid 1.50 mmol/L (0.7-2.0) 02/10/19 08:58 Calcium 9.4 mg/dL (8.4-10.2) 02/11/19 04:52 Magnesium 1.60 mg/dL (1.7-2.3) L 02/10/19 06:59 Total Bilirubin 0.50 mg/dL (0.1-1.2) 02/11/19 04:52 AST 14 units/L (5-40) 02/11/19 04:52 ALT 16 units/L (7-56) 02/11/19 04:52 Alkaline Phosphatase 72 units/L (35-129) 02/11/19 04:52 Ammonia 36.0 umol/L (25-60) 02/10/19 06:59 Total Creatine Kinase 102 units/L (55-170) 02/10/19 06:59 Total Protein 6.6 g/dL (6.3-8.2) 02/11/19 04:52 Albumin 3.5 g/dL (3.9-5) L 02/11/19 04:52 Albumin/Globulin Ratio 1.1 % 02/11/19 04:52 Lipase 18 units/L (13-60) 02/10/19 04:49 TSH 0.380 mlU/mL (0.270-4.200) 02/10/19 19:51 Free T4 1.01 ng/dL (0.76-1.46) 02/10/19 19:51 Urine Color Yellow (Yellow) 02/10/19 06:56 Urine Turbidity Slightly-cloudy (Clear) 02/10/19 06:56 Urine pH 5.0 (5.0-7.0) 02/10/19 06:56 Ur Specific [place] 1.032 (1.003-1.030) H 02/10/19 06:56 Urine Protein 30 mg/dl mg/dL (Negative) 02/10/19 06:56 Urine Glucose (UA) >=500 mg/dL (Negative) 02/10/19 06:56 Urine Ketones Tr mg/dL (Negative) 02/10/19 06:56 Urine Blood Neg (Negative) 02/10/19 06:56 Urine Nitrite Neg (Negative) 02/10/19 06:56 Urine Bilirubin Neg (Negative) 02/10/19 06:56 Urine Urobilinogen < 2.0 mg/dL (<2.0) 02/10/19 06:56 Ur Leukocyte Esterase Tr (Negative) 02/10/19 06:56 Urine WBC (Auto) 10.0 /HPF (0.0-6.0) H 02/10/19 06:56 Urine RBC (Auto) 3.0 /HPF (0.0-6.0) 02/10/19 06:56 U Epithel Cells (Auto) 4.0 /HPF (0-13.0) 02/10/19 06:56 Urine Bacteria (Auto) 1+ /HPF (Negative) 02/10/19 06:56 Urine Mucus Few /HPF 02/10/19 06:56 Salicylates < 0.3 mg/dL (2.8-20.0) L 02/10/19 06:59 Urine Opiates Screen Presumptive negative 02/10/19 06:56 Urine Methadone Screen Presumptive negative 02/10/19 06:56 Acetaminophen < 5.0 ug/mL (10.0-30.0) L 02/10/19 06:59 Ur Barbiturates Screen Presumptive negative 02/10/19 06:56 Ur Phencyclidine Scrn Presumptive negative 02/10/19 06:56 Ur Amphetamines Screen Presumptive negative 02/10/19 06:56 U Benzodiazepines Scrn Presumptive negative 02/10/19 06:56 Urine Cocaine Screen Presumptive negative 02/10/19 06:56 U Marijuana (THC) Screen Presumptive positive 02/10/19 06:56 Drugs of Abuse Note Disclamer 02/10/19 06:56 Plasma/Serum Alcohol < 0.01 % (0-0.07) 02/10/19 06:59 Active Medications - Current Medications Current Medications: Generic Name Dose Route Start Last Admin Trade Name Freq PRN Reason Stop Dose Admin Acetaminophen 650 mg 02/10/19 12:23 02/13/19 04:07 Tylenol PO 650 mg Q4H PRN Administration Pain MILD(1-3)/Fever >100.5/DEVLIN Albuterol 2.5 mg 02/10/19 12:23 Proventil IH Q4HRT PRN Shortness Of Breath Bisacodyl 10 mg 02/12/19 10:00 02/13/19 09:24 Dulcolax NJ 10 mg QDAY JAX Administration Dextrose 50 ml 02/11/19 15:23 D50w (25gm) Syringe IV Q30MIN PRN Hypoglycemia Protocol Hydralazine HCl 10 mg 02/12/19 11:26 02/13/19 12:33 Apresoline IV 10 mg Q4HR PRN Administration Hypertension Hydralazine HCl 10 mg 02/13/19 14:26 Apresoline IV Q4HR PRN Hypertension Sodium Chloride 1,000 mls @ 42 mls/hr 02/10/19 12:30 02/10/19 16:02 Nacl 0.9% 1000 Ml IV 42 mls/hr DIRECT JAX Administration Insulin Glargine 10 units 02/11/19 22:00 02/12/19 22:47 Lantus SUB-Q 10 units QHS JAX Administration Insulin Human Lispro 0 unit 02/10/19 12:30 02/13/19 12:16 Humalog SUB-Q Not Given ACHS JAX Protocol Lorazepam 2 mg 02/10/19 14:52 Ativan IV Q1HR PRN CIWA-Ar 8-15 Metoprolol Tartrate 2.5 mg 02/13/19 14:25 Metoprolol IV Q6HR PRN Hypertension Morphine Sulfate 2 mg 02/10/19 12:23 02/12/19 22:40 Morphine IV 2 mg Q6H PRN Administration Pain, Moderate (4-6) Ondansetron HCl 4 mg 02/10/19 12:23 02/12/19 09:16 Zofran IV 4 mg Q8H PRN Administration Nausea And Vomiting Pantoprazole Sodium 40 mg 02/13/19 14:00 Protonix IV QDAY JAX Sodium Chloride 10 ml 02/10/19 22:00 02/13/19 09:25 Sodium Chloride Flush Syringe 10 Ml IV 10 ml BID JAX Administration Sodium Chloride 10 ml 02/10/19 12:23 Sodium Chloride Flush Syringe 10 Ml IV PRN PRN LINE FLUSH
[2019-02-13] MEDS: MORPHINE 2 MG/1 ML INJ IV PRN (14:34)
[2019-02-13] MEDS: PANTOPRAZOLE 40 MG INJ IV SCH (14:34)
[2019-02-13 15:29] LABS: BUN/Creatinine Ratio 28; Blood Urea Nitrogen 17 mg/dL (9-20); Calcium 9.5 mg/dL (8.4-10.2); Hemolysis Index 7
[2019-02-13] MEDS: ENALAPRILAT 2.5 MG/2 ML INJ IV SCH ×2 (17:38→23:35)
[2019-02-13] MEDS ORDERED: MAGNESIUM SULFATE 1 GM in WATER FOR INJ (PF) 23 ML IV ONE (18:54)
[2019-02-13] MEDS ORDERED: MAGNESIUM SULFATE 1 GM in SODIUM CHLORIDE 0.9% 50 ML IV ONE (20:00)
[2019-02-13] MEDS: INSULIN GLARGINE 100 UNITS/ML SUB-Q SCH (23:24)
[2019-02-14] MEDS: SODIUM CHLORIDE 0.9% 1000 ML 1,000 ML IV SCH (06:05)
[2019-02-14] MEDS: ENALAPRILAT 2.5 MG/2 ML INJ IV SCH ×4 (06:05→17:00)
[2019-02-14] MEDS: INSULIN LISPRO 100 UNIT/ML SUB-Q SCH ×4 (07:30→22:21)
[2019-02-14] MEDS ORDERED: hydrALAZINE 20 MG/1 ML INJ IV PRN (08:15)
--- NOTE | 2019-02-14 08:25 | XRay Report ---
ABDOMEN 3 VIEW(S) INDICATION / CLINICAL INFORMATION: psbo. COMPARISON: Abdominal series from 02/13/2019 FINDINGS: TUBES / LINES: NG tube tip in the proximal stomach. BOWEL GAS PATTERN: Persistent abnormal diffuse gaseous distention of bowel with a trace amount of gas within the colon could be seen with a partial small bowel obstruction as questioned. FREE AIR / EXTRALUMINAL GAS: None seen. ADDITIONAL FINDINGS: Trace layering effusion/atelectasis in the right lung base again noted. Otherwis e clear lungs with normal heart size. IMPRESSION: 1. Abdominal findings as above with NG tube tip in the proximal stomach. The tube should be advanced another 5-10 cm. Signer Name: Aman Lemus MD Signed: 02/14/2019 8:20 AM Workstation Name: [id number]
[2019-02-14] MEDS: PANTOPRAZOLE 40 MG INJ IV SCH (09:56)
[2019-02-14 12:32] LABS: Hematocrit 38.9 % (35.5-45.6); Mean Corpuscular HGB Conc 34 % (32-34); Mean Corpuscular Volume 80 fl (84-94); Platelet Count 372 K/mm3 (140-440); Red Blood Count 4.83 M/mm3 (3.65-5.03); Red Cell Distribution Width 12.7 % (13.2-15.2)
--- NOTE | 2019-02-14 12:38 | Consultation ---
History of Present Illness Consult date: 02/14/19 Consult reason: pre op evaluation History of present illness: This is a 63-year old male whom is admitted with partial small bowel obstruction and may need surgical intervention. A cardiac consultation has been requested for pre-operative risk assessment. Patient denies chest pain and shortness of breath. His presenting ECG is sinus rhythm with LVH. He has a remote history of coronary artery disease and ischemic cardiomyopathy dating back to 2011. He has not seen a supervisor roving on an outpatient basis in several years. His latest cardiac workup was done at this hospital in 2018. He had a thallium stress test that reports no reversible i schemia, ejection fraction 15%. Past History Past Medical History: CAD, heart failure, hypertension Social history: single, smoking, alcohol abuse Family history: diabetes, hypertension Medications and Allergies Allergies Allergy/AdvReac Type Severity Reaction Status Date / Time No Known Allergies Allergy Verified 02/07/18 05:46 Home Medications Medication Instructions Recorded Confirmed Last Taken Type Insulin Glargine [Lantus] 10 units SQ QHS 12/09/16 02/11/19 12/08/16 History Lisinopril [Zestril TAB] 20 mg PO QDAY 12/09/16 02/11/19 Unknown History Aspirin 81 mg PO DAILY 02/07/18 02/11/19 Unknown History AtorvaSTATin [Lipitor] 40 mg PO QHS 02/07/18 02/11/19 Unknown History Carvedilol [Coreg] 3.125 mg PO BID 02/07/18 02/11/19 Unknown History Active Meds: Active Medications Acetaminophen (Tylenol) 650 mg PO Q4H PRN PRN Reason: Pain MILD(1-3)/Fever >100.5/DEVLIN Last Admin: 02/13/19 04:07 Dose: 650 mg Documented by: Albuterol (Proventil) 2.5 mg IH Q4HRT PRN PRN Reason: Shortness Of Breath Bisacodyl (Dulcolax) 10 mg VT QDAY [facility] Last Admin: 02/14/19 09:56 Dose: 10 mg Documented by: Dextrose (D50w (25gm) Syringe) 50 ml IV Q30MIN PRN; Protocol PRN Reason: Hypoglycemia Enalaprilat (Vasotec) 1.25 mg IV Q6HR [facility] Hydralazine HCl (Apresoline) 10 mg IV Q4HR PRN PRN Reason: Hypertension Sodium Chloride (Nacl 0.9% 1000 Ml) 1,000 mls @ 42 mls/hr IV DIRECT [facility] Last Admin: 02/14/19 06:05 Dose: 42 mls/hr Documented by: Insulin Glargine (Lantus) 10 units SUB-Q QHS [facility] Last Admin: 02/13/19 23:24 Dose: Not Given Documented by: Insulin Human Lispro (Humalog) 0 unit SUB-Q ACHS [facility]; Protocol Last Admin: 02/14/19 11:30 Dose: Not Given Documented by: Lorazepam (Ativan) 2 mg IV Q1HR PRN PRN Reason: CIWA-Ar 8-15 Morphine Sulfate (Morphine) 2 mg IV Q6H PRN PRN Reason: Pain, Moderate (4-6) Last Admin: 02/13/19 14:34 Dose: 2 mg Documented by: Ondansetron HCl (Zofran) 4 mg IV Q8H PRN PRN Reason: Nausea And Vomiting Last Admin: 02/12/19 09:16 Dose: 4 mg Documented by: Pantoprazole Sodium (Protonix) 40 mg IV QDAY [facility] Last Admin: 02/14/19 09:56 Dose: 40 mg Documented by: Sodium Chloride (Sodium Chloride Flush Syringe 10 Ml) 10 ml IV BID [facility] Last Admin: 02/14/19 09:57 Dose: 10 ml Documented by: Sodium Chloride (Sodium Chloride Flush Syringe 10 Ml) 10 ml IV PRN PRN PRN Reason: LINE FLUSH Physical Examination Vital Signs Pulse Ox 99 02/10/19 04:09 General appearance: no acute distress HEENT: Positive: PERRL Neck: Positive: trachea midline Cardiac: Positive: Reg Rate and Rhythm Lungs: Positive: Decreased Breath Sounds Results 02/14/19 12:02 02/13/19 14:58 CBC 02/14/19 Range/Units 12:02 WBC 5.9 (4.5-11.0) K/mm3 RBC 4.83 (3.65-5.03) M/mm3 Hgb 13.0 (11.8-15.2) gm/dl Hct 38.9 (35.5-45.6) % Plt Count 372 (140-440) K/mm3 Comprehensive Metabolic Panel 02/13/19 Range/Units 14:58 Sodium 132 L (137-145) mmol/L Potassium 3.6 (3.6-5.0) mmol/L Chloride 95.9 L (98-107) mmol/L Carbon Dioxide 21 L (22-30) mmol/L BUN 17 (9-20) mg/dL Creatinine 0.6 L (0.8-1.5) mg/dL Glucose 176 H (75-100) mg/dL Calcium 9.5 (8.4-10.2) mg/dL
[2019-02-14 12:45] LABS: INR 1.06 (0.87-1.13)
[2019-02-14 12:57] LABS: BUN/Creatinine Ratio 21; Blood Urea Nitrogen 15 mg/dL (9-20); Calcium 8.9 mg/dL (8.4-10.2); Hemolysis Index 62
--- NOTE | 2019-02-14 13:11 | Progress Note ---
Assessment and Plan 63 yo M with SBO, partial Obs series - dilated small bowel loops. some air in colon. Plan: 1. NPO 2. IVF 3. NGT and keep to LIWS 4. replace lytes as needed 5. OOB/ambulate 6. cardiology consulted for preop risk assessment. If patient does not resolve SBO with conservative management, may need surgical intervention this admission. 7. PPI daily 8. obtain SBFT today Patient remains stable, afebrile without complaints and is having bowel function. Abdominal exam is mildly improved but xrays show persistent small bowel dilatation. If SBFT shows point of obstruction, will likely need exploratory laparotomy. Further recs pending SBFT Will follow. D/W Dr. Mckeon Thank you, please call with questions. No family at bedside. Subjective Date of service: 02/14/19 Narrative: Pt seen and examined. States he feels wells. Denies abdominal pain, n/v. States he wants jello. No f/c. +flatus, 1 BM recorded yesterday Objective Vital Signs - 12hr 02/14/19 02/14/19 06:02 06:05 Temperature 97.9 F Pulse Rate 95 H 95 H Respiratory 20 Rate Blood Pressure 163/102 163/102 O2 Sat by Pulse 97 Oximetry - General physical appearance Narrative Exam: Gen: Awake and alert. NAD ENT: NGT with 30 cc of thick gastric drainage. NGT advanced by 5 cm and retaped CV; S1, S2+ Resp; even and unlabored Abd: soft, mildly distended - less so than yesterdays exam, NT Ext: no c/c/e - Labs 02/14/19 12:02 02/14/19 12:02 Diabetes panel 02/13/19 02/14/19 Range/Units 14:58 12:02 Sodium 132 L 136 L (137-145) mmol/L Potassium 3.6 3.6 (3.6-5.0) mmol/L Chloride 95.9 L 99.8 (98-107) mmol/L Carbon Dioxide 21 L 20 L (22-30) mmol/L BUN 17 15 (9-20) mg/dL Creatinine 0.6 L 0.7 L (0.8-1.5) mg/dL Glucose 176 H 89 (75-100) mg/dL Calcium 9.5 8.9 (8.4-10.2) mg/dL Calcium panel 02/13/19 02/14/19 Range/Units 14:58 12:02 Calcium 9.5 8.9 (8.4-10.2) mg/dL Phosphorus 2.50 (2.5-4.5) mg/dL Pituitary panel 02/13/19 02/14/19 Range/Units 14:58 12:02 Sodium 132 L 136 L (137-145) mmol/L Potassium 3.6 3.6 (3.6-5.0) mmol/L Chloride 95.9 L 99.8 (98-107) mmol/L Carbon Dioxide 21 L 20 L (22-30) mmol/L BUN 17 15 (9-20) mg/dL Creatinine 0.6 L 0.7 L (0.8-1.5) mg/dL Glucose 176 H 89 (75-100) mg/dL Calcium 9.5 8.9 (8.4-10.2) mg/dL Adrenal panel 02/13/19 02/14/19 Range/Units 14:58 12:02 Sodium 132 L 136 L (137-145) mmol/L Potassium 3.6 3.6 (3.6-5.0) mmol/L Chloride 95.9 L 99.8 (98-107) mmol/L Carbon Dioxide 21 L 20 L (22-30) mmol/L BUN 17 15 (9-20) mg/dL Creatinine 0.6 L 0.7 L (0.8-1.5) mg/dL Glucose 176 H 89 (75-100) mg/dL Calcium 9.5 8.9 (8.4-10.2) mg/dL
--- NOTE | 2019-02-14 13:44 | Progress Note ---
Assessment and Plan Assessment and plan: 63 YO Male with HTN, Nicotine Dependence, ETOH Dependence, DM, CAD S/P Stent Placement, HLD, CVA with LHP presents to ED for evaluation. Pt is confused, and lethargic and unable to provide detailed history. Pt merely points to his abdomen and states that" Its been Hurting". No further history obtainable. Additional history taken from EMS staff, and ED staff. As per staff, the patient has experienced abdominal pain over the past 2 weeks with persistent symptoms over the same time frame. EMS notified, and upon arrival the patient was found to be in distress and transported to [facility]. Pt seen and evaluated in ED and found to have SBO, Encephalopathy, as well as UTI. Pt admitted to medical floor for treatment of UTI as well as High grade SBO. Surgical team consulted in ED. * On admission concern for small bowel obstruction urinary tract infection. NG tube was placed to low intermittent suction. Surgery was consulted KUB serially obtained. * CT head showed no acute abnormality. * Today abdomen is fairly benign. Agree with surgery that NG tube will be discontinued and will start patient on clear liquid diet. And if continues to improve by a.m. patient probably will be discharged in a day or 2 based on clinical outcome. * Patient has an underlying cardiomyopathy with an EF of 15% with no acute cardiac symptoms is noted at this time. * Failed PO, will monitor for lunch and dinner. * Cardiology for pre-op * Change some medication to IV for better BP management. * Currently on conservative management for SBO but may need surgery. (1) SBO (small bowel obstruction) Current Visit: Yes Status: Acute Plan to address problem: Surgery consulted, CONTINUE gentle hydration and clear liquid diet Appears to have been resolving Discussed with surgery patient may need ex lap to further investigate. (2) METABOLIC Encephalopathy Current Visit: Yes Status: Acute Plan to address problem: neuro check, aspiration precautions, fall precautions, thyroid panel Resolved patient is vocal and verbal. (3) Alcohol dependence Current Visit: Yes Status: Acute Qualifiers: Complication of substance-induced condition: with perceptual disturbance Plan to address problem: CIWA protocol, Blood Alcohol Level, Ativan prn (4) UTI (urinary tract infection) Current Visit: Yes Status: Acute Qualifiers: Encounter type: initial encounter Plan to address problem: IV antibiotic therapy, Await culture. (5) Nicotine dependence Current Visit: Yes Status: Acute Qualifiers: Substance use status: in withdrawal Plan to address problem: Supportive care, smoking cessation counseling, +15min (6) diabetes mellitus with hyperglycemia Sliding scale insulin at this point, Will adjust (7) Hypontremia-improving (8) DVT prophylaxis Current Visit: Yes Status: Acute Plan to address problem: SCD to BLE while in bed Discussed with Nursing and Surgeon. No family at bedside. History Interval history: Patient seen and examined no acute distress at this time although still lethargic, multiple liquid BM, no other adverse event reported to me overnight except mildly elevated blood pressure medications prescribed were not given unsure why. Hospitalist Physical - Physical exam Narrative exam: VITAL SIGNS: Reviewed. GENERAL: The patient appears normally developed, Lethargic, vital signs as documented. HEAD: No signs of head trauma. EYES: Pupils are equal. Extraocular motions intact. EARS: Hearing grossly intact. MOUTH: Oropharynx is normal. NECK: No adenopathy, no JVD. CHEST: Chest with clear breath sounds bilaterally. No wheezes, rales, or rhonchi. CARDIAC: Regular rate and rhythm. S1 and S2, without murmurs, gallops, or rubs. VASCULAR: No Edema. Peripheral pulses normal and equal in all extremities. ABDOMEN: Soft, non tender but distended. No rebound or guarding, and no masses palpated. Bowel Sounds normal. MUSCULOSKELETAL: Good range of motion of all major joints. Extremities without clubbing, cyanosis or edema. NEUROLOGIC EXAM: awake and oriented x 3 No focal sensory or strength deficits. Speech normal. Follows commands. PSYCHIATRIC: Mood normal. SKIN: detail exam as documented in skin assessment - Constitutional Vitals: Temp Pulse Resp BP Pulse Ox 97.9 F 95 H 20 163/102 97 02/14/19 06:02 02/14/19 06:05 02/14/19 06:02 02/14/19 06:05 02/14/19 06:02 General appearance: Present: no acute distress Results - Labs CBC & Chem 7: 02/14/19 12:02 02/14/19 12:02 Labs: Laboratory Last Values WBC 5.9 K/mm3 (4.5-11.0) 02/14/19 12:02 RBC 4.83 M/mm3 (3.65-5.03) 02/14/19 12:02 Hgb 13.0 gm/dl (11.8-15.2) 02/14/19 12:02 Hct 38.9 % (35.5-45.6) 02/14/19 12:02 MCV 80 fl (84-94) L 02/14/19 12:02 MCH 27 pg (28-32) L 02/14/19 12:02 MCHC 34 % (32-34) 02/14/19 12:02 RDW 12.7 % (13.2-15.2) L 02/14/19 12:02 Plt Count 372 K/mm3 (140-440) 02/14/19 12:02 Lymph % (Auto) 9.2 % (13.4-35.0) L 02/10/19 04:22 [place] % (Auto) Rotor Winder 02/11/19 04:52 Eos % (Auto) 0.4 % (0.0-4.3) 02/10/19 04:22 Baso % (Auto) 0.2 % (0.0-1.8) 02/10/19 04:22 Lymph # 0.5 K/mm3 (1.2-5.4) L 02/10/19 04:22 [place] # 0.7 K/mm3 (0.0-0.8) 02/10/19 04:22 Eos # 0.0 K/mm3 (0.0-0.4) 02/10/19 04:22 Baso # 0.0 K/mm3 (0.0-0.1) 02/10/19 04:22 Add Manual Diff Complete 02/11/19 04:52 Total Counted 100 02/11/19 04:52 Seg Neutrophils % 76.2 % (40.0-70.0) H 02/10/19 04:22 Seg Neuts % (Manual) 64.0 % (40.0-70.0) 02/11/19 04:52 Band Neutrophils % 5.0 % 02/11/19 04:52 Lymphocytes % (Manual) 12.0 % (13.4-35.0) L 02/11/19 04:52 Reactive Lymphs % (Man) 0 % 02/11/19 04:52 Monocytes % (Manual) 18.0 % (0.0-7.3) H 02/11/19 04:52 Eosinophils % (Manual) 1.0 % (0.0-4.3) 02/11/19 04:52 Basophils % (Manual) 0 % (0.0-1.8) 02/11/19 04:52 Metamyelocytes % 0 % 02/11/19 04:52 Myelocytes % 0 % 02/11/19 04:52 Promyelocytes % 0 % 02/11/19 04:52 Blast Cells % 0 % 02/11/19 04:52 Nucleated RBC % Not Reportable 02/11/19 04:52 Seg Neutrophils # 3.9 K/mm3 (1.8-7.7) 02/10/19 04:22 Seg Neutrophils # Man 3.8 K/mm3 (1.8-7.7) 02/11/19 04:52 Band Neutrophils # 0.3 K/mm3 02/11/19 04:52 Lymphocytes # (Manual) 0.7 K/mm3 (1.2-5.4) L 02/11/19 04:52 Abs React Lymphs (Man) 0.0 K/mm3 02/11/19 04:52 Monocytes # (Manual) 1.1 K/mm3 (0.0-0.8) H 02/11/19 04:52 Eosinophils # (Manual) 0.1 K/mm3 (0.0-0.4) 02/11/19 04:52 Basophils # (Manual) 0.0 K/mm3 (0.0-0.1) 02/11/19 04:52 Metamyelocytes # 0.0 K/mm3 02/11/19 04:52 Myelocytes # 0.0 K/mm3 02/11/19 04:52 Promyelocytes # 0.0 K/mm3 02/11/19 04:52 Blast Cells # 0.0 K/mm3 02/11/19 04:52 WBC Morphology Not Reportable 02/11/19 04:52 Hypersegmented Neuts Not Reportable 02/11/19 04:52 Hyposegmented Neuts Not Reportable 02/11/19 04:52 Hypogranular Neuts Not Reportable 02/11/19 04:52 Smudge Cells Not Reportable 02/11/19 04:52 Toxic Granulation Not Reportable 02/11/19 04:52 Toxic Vacuolation Not Reportable 02/11/19 04:52 Dohle Bodies Not Reportable 02/11/19 04:52 Pelger-Huet Anomaly Not Reportable 02/11/19 04:52 Na Rods Not Reportable 02/11/19 04:52 Platelet Estimate Consistent w auto 02/11/19 04:52 Clumped Platelets Not Reportable 02/11/19 04:52 Plt Clumps, EDTA Not Reportable 02/11/19 04:52 Large Platelets Not Reportable 02/11/19 04:52 Giant Platelets Not Reportable 02/11/19 04:52 Platelet Satelliting Not Reportable 02/11/19 04:52 Plt Morphology Comment Not Reportable 02/11/19 04:52 RBC Morphology Not Reportable 02/11/19 04:52 Dimorphic RBCs Not Reportable 02/11/19 04:52 Polychromasia Not Reportable 02/11/19 04:52 Hypochromasia Not Reportable 02/11/19 04:52 Poikilocytosis Not Reportable 02/11/19 04:52 Anisocytosis 1+ 02/11/19 04:52 Microcytosis Not Reportable 02/11/19 04:52 Macrocytosis Not Reportable 02/11/19 04:52 Spherocytes Not Reportable 02/11/19 04:52 Pappenheimer Bodies Not Reportable 02/11/19 04:52 Sickle Cells Not Reportable 02/11/19 04:52 Target Cells Not Reportable 02/11/19 04:52 Tear Drop Cells Not Reportable 02/11/19 04:52 Ovalocytes Not Reportable 02/11/19 04:52 Helmet Cells Not Reportable 02/11/19 04:52 [place] Bodies Not Reportable 02/11/19 04:52 [place] Rings Not Reportable 02/11/19 04:52 Debbie Cells Not Reportable 02/11/19 04:52 Bite Cells Not Reportable 02/11/19 04:52 Crenated Cell Not Reportable 02/11/19 04:52 Elliptocytes Not Reportable 02/11/19 04:52 Acanthocytes (Spur) Not Reportable 02/11/19 04:52 Rouleaux Not Reportable 02/11/19 04:52 Hemoglobin C Crystals Not Reportable 02/11/19 04:52 Schistocytes Not Reportable 02/11/19 04:52 Malaria parasites Not Reportable 02/11/19 04:52 Maninder Bodies Not Reportable 02/11/19 04:52 Hem Pathologist Commnt No 02/11/19 04:52 PT 13.9 Sec. (12.2-14.9) 02/14/19 12:02 INR 1.06 (0.87-1.13) 02/14/19 12:02 Sodium 136 mmol/L (137-145) L 02/14/19 12:02 Potassium 3.6 mmol/L (3.6-5.0) 02/14/19 12:02 Chloride 99.8 mmol/L (98-107) 02/14/19 12:02 Carbon Dioxide 20 mmol/L (22-30) L 02/14/19 12:02 Anion Gap 20 mmol/L 02/14/19 12:02 BUN 15 mg/dL (9-20) 02/14/19 12:02 Creatinine 0.7 mg/dL (0.8-1.5) L 02/14/19 12:02 Estimated GFR > 60 ml/min 02/14/19 12:02 BUN/Creatinine Ratio 21 % 02/14/19 12:02 Glucose 89 mg/dL (75-100) 02/14/19 12:02 POC Glucose 92 (70-105) 02/14/19 12:30 Lactic Acid 1.50 mmol/L (0.7-2.0) 02/10/19 08:58 Calcium 8.9 mg/dL (8.4-10.2) 02/14/19 12:02 Phosphorus 2.50 mg/dL (2.5-4.5) 02/13/19 14:58 Magnesium 1.60 mg/dL (1.7-2.3) L 02/13/19 14:58 Total Bilirubin 0.50 mg/dL (0.1-1.2) 02/11/19 04:52 AST 14 units/L (5-40) 02/11/19 04:52 ALT 16 units/L (7-56) 02/11/19 04:52 Alkaline Phosphatase 72 units/L (35-129) 02/11/19 04:52 Ammonia 36.0 umol/L (25-60) 02/10/19 06:59 Total Creatine Kinase 102 units/L (55-170) 02/10/19 06:59 Total Protein 6.6 g/dL (6.3-8.2) 02/11/19 04:52 Albumin 3.5 g/dL (3.9-5) L 02/11/19 04:52 Albumin/Globulin Ratio 1.1 % 02/11/19 04:52 Lipase 18 units/L (13-60) 02/10/19 04:49 TSH 0.380 mlU/mL (0.270-4.200) 02/10/19 19:51 Free T4 1.01 ng/dL (0.76-1.46) 02/10/19 19:51 Urine Color Yellow (Yellow) 02/10/19 06:56 Urine Turbidity Slightly-cloudy (Clear) 02/10/19 06:56 Urine pH 5.0 (5.0-7.0) 02/10/19 06:56 Ur Specific [place] 1.032 (1.003-1.030) H 02/10/19 06:56 Urine Protein 30 mg/dl mg/dL (Negative) 02/10/19 06:56 Urine Glucose (UA) >=500 mg/dL (Negative) 02/10/19 06:56 Urine Ketones Tr mg/dL (Negative) 02/10/19 06:56 Urine Blood Neg (Negative) 02/10/19 06:56 Urine Nitrite Neg (Negative) 02/10/19 06:56 Urine Bilirubin Neg (Negative) 02/10/19 06:56 Urine Urobilinogen < 2.0 mg/dL (<2.0) 02/10/19 06:56 Ur Leukocyte Esterase Tr (Negative) 02/10/19 06:56 Urine WBC (Auto) 10.0 /HPF (0.0-6.0) H 02/10/19 06:56 Urine RBC (Auto) 3.0 /HPF (0.0-6.0) 02/10/19 06:56 U Epithel Cells (Auto) 4.0 /HPF (0-13.0) 02/10/19 06:56 Urine Bacteria (Auto) 1+ /HPF (Negative) 02/10/19 06:56 Urine Mucus Few /HPF 02/10/19 06:56 Salicylates < 0.3 mg/dL (2.8-20.0) L 02/10/19 06:59 Urine Opiates Screen Presumptive negative 02/10/19 06:56 Urine Methadone Screen Presumptive negative 02/10/19 06:56 Acetaminophen < 5.0 ug/mL (10.0-30.0) L 02/10/19 06:59 Ur Barbiturates Screen Presumptive negative 02/10/19 06:56 Ur Phencyclidine Scrn Presumptive negative 02/10/19 06:56 Ur Amphetamines Screen Presumptive negative 02/10/19 06:56 U Benzodiazepines Scrn Presumptive negative 02/10/19 06:56 Urine Cocaine Screen Presumptive negative 02/10/19 06:56 U Marijuana (THC) Screen Presumptive positive 02/10/19 06:56 Drugs of Abuse Note Disclamer 02/10/19 06:56 Plasma/Serum Alcohol < 0.01 % (0-0.07) 02/10/19 06:59 Active Medications - Current Medications Current Medications: Generic Name Dose Route Start Last Admin Trade Name Freq PRN Reason Stop Dose Admin Acetaminophen 650 mg 02/10/19 12:23 02/13/19 04:07 Tylenol PO 650 mg Q4H PRN Administration Pain MILD(1-3)/Fever >100.5/DEVLIN Albuterol 2.5 mg 02/10/19 12:23 Proventil IH Q4HRT PRN Shortness Of Breath Bisacodyl 10 mg 02/12/19 10:00 02/14/19 09:56 Dulcolax [place] 10 mg QDAY JAX Administration Dextrose 50 ml 02/11/19 15:23 D50w (25gm) Syringe IV Q30MIN PRN Hypoglycemia Protocol Enalaprilat 1.25 mg 02/14/19 12:00 Vasotec IV Q6HR JAX Hydralazine HCl 10 mg 02/14/19 08:15 Apresoline IV Q4HR PRN Hypertension Sodium Chloride 1,000 mls @ 42 mls/hr 02/10/19 12:30 02/14/19 06:05 Nacl 0.9% 1000 Ml IV 42 mls/hr DIRECT JAX Administration Insulin Glargine 10 units 02/11/19 22:00 02/13/19 23:24 Lantus SUB-Q Not Given QHS [facility] Insulin Human Lispro 0 unit 02/10/19 12:30 02/14/19 11:30 Humalog SUB-Q Not Given ACHS [facility] Protocol Lorazepam 2 mg 02/10/19 14:52 Ativan IV Q1HR PRN CIWA-Ar 8-15 Morphine Sulfate 2 mg 02/10/19 12:23 02/13/19 14:34 Morphine IV 2 mg Q6H PRN Administration Pain, Moderate (4-6) Ondansetron HCl 4 mg 02/10/19 12:23 02/12/19 09:16 Zofran IV 4 mg Q8H PRN Administration Nausea And Vomiting Pantoprazole Sodium 40 mg 02/13/19 14:00 02/14/19 09:56 Protonix IV 40 mg QDAY JAX Administration Sodium Chloride 10 ml 02/10/19 22:00 02/14/19 09:57 Sodium Chloride Flush Syringe 10 Ml IV 10 ml BID JAX Administration Sodium Chloride 10 ml 02/10/19 12:23 Sodium Chloride Flush Syringe 10 Ml IV PRN PRN LINE FLUSH
[2019-02-14] MEDS: INSULIN GLARGINE 100 UNITS/ML SUB-Q SCH (22:22)
[2019-02-15] MEDS: ENALAPRILAT 2.5 MG/2 ML INJ IV SCH ×3 (00:39→12:00)
[2019-02-15] MEDS: MORPHINE 2 MG/1 ML INJ IV PRN ×2 (05:41→11:26)
[2019-02-15] MEDS: INSULIN LISPRO 100 UNIT/ML SUB-Q SCH ×3 (07:30→16:30)
[2019-02-15] MEDS: PANTOPRAZOLE 40 MG INJ IV SCH (10:00)
--- NOTE | 2019-02-15 10:15 | Progress Note ---
Assessment and Plan Preoperative cardiac assessment in anticipation of surgery Partial small bowel obstruction currently managed conservatively Hx of coronary artery disease 2018 MPI reports a fixed inferior defect and a severe cardiomyopathy with left ventricular ejection fraction 15% by gated SPECT. Hx of ischemic dilated cardiomyopathy Htn DM Recommendations: Medical therapy for coronary artery disease and chronic systolic left ventricular dysfunction once he is transitioned to oral medications. If surgery becomes indicated for small bowel obstruction, the patient is at least moderate risk for perioperative myocardial infarction, heart failure exacerbation and malignant ventricular arrhythmias. Subjective Date of service: 02/15/19 Interval history: Patient is resting in bed comfortably. NGT was pulled out overnight and the patient refuses to have it replaced. Objective Vital Signs Temp Pulse Resp BP Pulse Ox 02/15/19 05:38 18 144/92 02/15/19 04:51 20 02/15/19 04:01 89 173/104 02/15/19 03:54 89 20 173/104 97 02/15/19 00:39 88 171/94 02/14/19 23:46 89 171/94 98 02/14/19 17:43 97.8 F 96 H 18 171/103 97 02/14/19 12:20 97.0 F L 96 H 20 156/95 98 - Physical Examination General: No Apparent Distress HEENT: Positive: PERRL Neck: Positive: trachea midline Cardiac: Positive: Reg Rate and Rhythm Lungs: Positive: Decreased Breath Sounds Neuro: Positive: Weakness - Labs and Meds Coagulation 02/14/19 Range/Units 12:02 PT 13.9 (12.2-14.9) Sec. INR 1.06 (0.87-1.13) CBC 02/14/19 Range/Units 12:02 WBC 5.9 (4.5-11.0) K/mm3 RBC 4.83 (3.65-5.03) M/mm3 Hgb 13.0 (11.8-15.2) gm/dl Hct 38.9 (35.5-45.6) % Plt Count 372 (140-440) K/mm3 Comprehensive Metabolic Panel 02/14/19 Range/Units 12:02 Sodium 136 L (137-145) mmol/L Potassium 3.6 (3.6-5.0) mmol/L Chloride 99.8 (98-107) mmol/L Carbon Dioxide 20 L (22-30) mmol/L BUN 15 (9-20) mg/dL Creatinine 0.7 L (0.8-1.5) mg/dL Glucose 89 (75-100) mg/dL Calcium 8.9 (8.4-10.2) mg/dL
[2019-02-15] MEDS ORDERED: D5W/0.45% NACL/KCL 10 MEQ 10 MEQ/1,000 ML BAG IV SCH (12:00)
--- NOTE | 2019-02-15 13:51 | Progress Note ---
Assessment and Plan 63 yo M with SBO, partial - resolving SBFT - contrast in colon by 1.5 hours. No obstruction seen. Official read pending Plan: 1. ok to start full liquid diet for lunch and adv to soft diet for dinner 2. gentle IVF 3. replace lytes as needed 4. OOB/ambulate 5. cardiology input appreciated If patient tolerates diet, he may be discharged. D/W Dr. Mckeon Thank you, please call with questions. Subjective Date of service: 02/15/19 Narrative: Pt seen and examined. Denies abdominal pain, n/v. He removed his NGT last night and refused to allow another one to be placed. He is having bowel movements and flatus. No f/c. He is upset that he has not been able to eat or drink for several days. Objective Vital Signs - 12hr 02/15/19 02/15/19 02/15/19 03:54 04:01 04:51 Pulse Rate 89 89 Respiratory 20 20 Rate Blood Pressure 173/104 173/104 O2 Sat by Pulse 97 Oximetry 02/15/19 05:38 Pulse Rate Respiratory 18 Rate Blood Pressure 144/92 O2 Sat by Pulse Oximetry - General physical appearance Narrative Exam: Gen: AAOx3. NAD CV: S1, S2+ resp: even and unlabored Abd: soft, mildly distended, NT. No r/r/g Ext: mild edema - Labs 02/14/19 12:02 02/14/19 12:02
--- NOTE | 2019-02-15 13:55 | Fluoroscopy Report ---
Small bowel follow-through HISTORY: psbo. Technique: Single contrast water-soluble technique utilized to evaluate the small bowel. Findings: Small bowel transit time was 1.5 hours which is normal. There are a few mildly prominent bowel loop; however, no focal fold thickening, mass, mass effect, stenosis, or obstruction. The term inal ileum is normal in appearance. Impression: Normal small bowel transit time with no evidence of obstruction. Signer Name: Aman Lemus MD Signed: 02/15/2019 1:50 PM Workstation Name: [id number]
--- NOTE | 2019-02-15 17:09 | Discharge Summary ---
Providers - Providers Date of Admission: 02/10/19 16:17 Attending physician: ANGIE EPSTEIN MD 02/10/19 06:47 Consult to Case Management [CONS] Urgent Services Needed at Discharge: Health Service Coordinator Notified:: awaiting call back 02/10/19 10:54 Consult to Physician [CONS] Urgent Comment: Consulting Provider: JESSE ROSARIO Physician Instructions: Reason For Exam: sbo 02/12/19 11:51 Physical Therapy Evaluation and Treat [CONS] Routine Comment: Reason For Exam: deconditioning 02/13/19 10:07 Consult to Physician [CONS] Routine Comment: Consulting Provider: NICHOLE MEJIA Physician Instructions: Reason For Exam: pre-op clearance Primary care physician: [employer]INATING [employer]ER Hospitalization Reason for admission: sbo Condition: Stable Hospital course: 63 YO Male with HTN, Nicotine Dependence, ETOH Dependence, DM, CAD S/P Stent Placement, HLD, CVA with LHP presents to ED for evaluation. Pt is confused, and lethargic and unable to provide detailed history. Pt merely points to his abdomen and states that" Its been Hurting". No further history obtainable. Additional history taken from EMS staff, and ED staff. As per staff, the patient has experienced abdominal pain over the past 2 weeks with persistent symptoms over the same time frame. EMS notified, and upon arrival the patient was found to be in distress and transported to [facility]. Pt seen and evaluated in ED and found to have SBO, Encephalopathy, as well as UTI. Pt admitted to medical floor for treatment of UTI as well as High grade SBO. Surgical team consulted in ED. * On admission concern for small bowel obstruction urinary tract infection. NG tube was placed to low intermittent suction. Surgery was consulted KUB serially obtained. * CT head showed no acute abnormality. * Today abdomen is fairly benign. Agree with surgery that NG tube will be discontinued and will start patient on clear liquid diet. And if continues to improve by a.m. patient probably will be discharged in a day or 2 based on clinical outcome. * Patient has an underlying cardiomyopathy with an EF of 15% with no acute cardiac symptoms is noted at this time. * Failed PO, will monitor for lunch and dinner. * Cardiology for pre-op * Change some medication to IV for better BP management. * Currently on conservative management for SBO * Patient had repeat SBFT which shows improvement, no surgery needed at this time. Cardiology had also done a pre-op. Patient discharged after tolerating diet (1) SBO (small bowel obstruction) (2) METABOLIC Encephalopathy (3) Alcohol dependence (4) UTI (urinary tract infection) (5) Nicotine dependence (6) diabetes mellitus with hyperglycemia (7) Hypontremia-improving Disposition: DC-01 TO HOME OR SELFCARE Time spent for discharge: 35 mins Core Measure Documentation - Palliative Care Palliative Care/ Comfort Measures: Not Applicable - Core Measures Any of the following diagnoses?: none Exam - Physical Exam Narrative exam: VITAL SIGNS: Reviewed. GENERAL: The patient appears normally developed, Lethargic, vital signs as documented. HEAD: No signs of head trauma. EYES: Pupils are equal. Extraocular motions intact. EARS: Hearing grossly intact. MOUTH: Oropharynx is normal. NECK: No adenopathy, no JVD. CHEST: Chest with clear breath sounds bilaterally. No wheezes, rales, or rhonchi. CARDIAC: Regular rate and rhythm. S1 and S2, without murmurs, gallops, or rubs. VASCULAR: No Edema. Peripheral pulses normal and equal in all extremities. ABDOMEN: Soft, non tender but distended. No rebound or guarding, and no masses palpated. Bowel Sounds normal. MUSCULOSKELETAL: Good range of motion of all major joints. Extremities without clubbing, cyanosis or edema. NEUROLOGIC EXAM: awake and oriented x 3 No focal sensory or strength deficits. Speech normal. Follows commands. PSYCHIATRIC: Mood normal. SKIN: detail exam as documented in skin assessment - Constitutional Vitals: Temp Pulse Resp BP Pulse Ox 97.8 F 89 18 144/92 97 02/14/19 17:43 02/15/19 04:01 02/15/19 05:38 02/15/19 05:38 02/15/19 03:54 Plan Activity: advance as tolerated, fall precautions Diet: low fat, diabetic Special Instructions: record daily BP diary, record blood sugar diary Follow up with: PRIMARY MD DARCIE [Primary Care Provider] - 3-5 Days JESSE ROSARIO DO [Staff Physician] - 7 Days NICHOLE MEJIA MD [Staff Physician] - 7 Days
[2019-02-15] MEDS ORDERED: ENALAPRILAT 2.5 MG/2 ML INJ IV SCH (18:00)
[2019-02-15 19:22] VITALS: BP 140/94
--- NOTE | 2019-02-18 12:58 | XRay Report ---
ABDOMINAL SERIES WITH CHEST X-RAY 0757 hours HISTORY: Follow-up small bowel obstruction COMPARISON: 02/11/2019 at 0031 hours FINDINGS: Single view of the chest remains unremarkable. The nasogastric tube terminates in the fundus of the stomach. Multiple dilated loops of small bowel a ppear unchanged in caliber measuring up to 5 cm in diameter. There is normal gas in the colon. No artur e air is appreciated. IMPRESSION: No significant interval change in the small bowel obstruction pattern. Signer Name: Librado Cheema Jr, MD Signed: 02/11/2019 8:32 AM Workstation Name: [id number]
== END 2019-02-15 19:00 | disposition home or self-care (01) | DRG 388 ==
LOC: ED 03:58 → 3A 11:57 → OBSVTOIN 16:17 → 3A 02-11 17:00
PROVIDERS: ADMIT Internal Medicine; ATTEND Internal Medicine
PROC: 0D9670Z Drainage of Stomach with Drainage Device, Via Natural or Artificial Opening (ICD-10-PCS; principal; 2019-02-10)
DX: K56.600 Partial intestinal obstruction, unspecified as to cause (principal); G93.41 Metabolic encephalopathy; N39.0 Urinary tract infection, site not specified; E87.1 Hypo-osmolality and hyponatremia; I69.354 Hemiplegia and hemiparesis following cerebral infarction affecting left non-dominant side; F17.213 Nicotine dependence, cigarettes, with withdrawal; E78.5 Hyperlipidemia, unspecified; F10.20 Alcohol dependence, uncomplicated; E11.65 Type 2 diabetes mellitus with hyperglycemia; I50.9 Heart failure, unspecified; I11.0 Hypertensive heart disease with heart failure; I25.5 Ischemic cardiomyopathy; I25.10 Atherosclerotic heart disease of native coronary artery without angina pectoris; Z79.4 Long term (current) use of insulin; I25.2 Old myocardial infarction; Z95.5 Presence of coronary angioplasty implant and graft; Z89.421 Acquired absence of other right toe(s)
CPT/HCPCS: 36415; 70450; 71045; 74018; 74022; 74177; 74250; 80048; 80053; 80307; 80320; 81001; 82140; 82550; 82962; 83690; 83735; 84100; 84439; 84443; 85007; 85025; 85027; 85610; 87040; 87086; 93005; 93010; 96365; G0378; A9270-GY; C9113; G0480; J0360; J0696; J1815; J2270; J2405; J3010; J3411; J3475; J7030; Q9963; Q9967

== ENCOUNTER 2019-03-11 10:24 | Emergency (ER) | payer MEDICAID ==
[2019-03-11] MEDS ORDERED: TETANUS,DIPH,PERTUSS(ACELL) VACCINE 0.5 ML SYRINGE IM ONE (11:30)
[2019-03-11] MEDS ORDERED: cephALEXin 500 MG CAP PO ONE (11:34)
[2019-03-11] MEDS ORDERED: IBUPROFEN 800 MG TAB PO ONE (11:34)
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
[2019-03-11 12:36] VITALS: BP 140/95
== END 2019-03-11 12:33 | disposition home or self-care (01) ==
LOC: ED 10:24
DX: T24.212A Burn of second degree of left thigh, initial encounter (principal); T31.0 Burns involving less than 10% of body surface; I10 Essential (primary) hypertension; I25.2 Old myocardial infarction; E11.9 Type 2 diabetes mellitus without complications; E78.00 Pure hypercholesterolemia, unspecified; Z95.5 Presence of coronary angioplasty implant and graft
CPT/HCPCS: 90471; 90715; 99282; 99283